=== PATIENT | male | born 1995 | race Caucasian/White ===

== ENCOUNTER 2018-01-18 20:58 | Emergency (ER) | payer OTHER, SELFPAY ==
--- NOTE | 2018-01-18 22:22 | EDPHYS ---
Physician Documentation [facility] Name: Pasha Garcia Age: 22 yrs Sex: Male : 1995 Arrival Date: 01/18/2018 Time: 21:00 Bed 30 Private MD: Felipe Zhao ED Physician William Mary HPI: 01/18 22:15 This 22 yrs old Male presents to ER via Ambulatory with complaints of Arm pm1 Pain, arm,finger,side,pain possible infection. 22:15 The patient or guardian complains of pain, a rash. The complaints affect the dorsal pm1 aspect of distal phalanx of left middle finger. Context: The problem was sustained at home, resulted from unknown cause. Onset: The symptoms/episode began/occurred yesterday. Treatment prior to arrival includes: no previous treatment. Modifying factors: The symptoms are alleviated by nothing. the symptoms are aggravated by movement. Associated signs and symptoms: Pertinent positives: pain, Pertinent negatives: deformity, erythema, fever, numbness, tingling. Severity of symptoms: in the emergency department the symptoms are actually worse. The patient has not experienced similar symptoms in the past. Historical: - Allergies: 21:16 No Known Allergies; aj1 - Home Meds: 21:16 None [Active]; aj1 - PMHx: 21:16 None; aj1 - PSHx: 21:16 None; aj1 - Immunization history:: Adult Immunizations up to date. - Social history:: Smoking status: Patient uses tobacco products, smokes one-half pack cigarettes per day. - Ebola Screening: : Patient denies travel to an Ebola-affected area in the 21 days before illness onset. ROS: 22:15 Constitutional: Negative for fever, chills, and weight loss, Eyes: Negative for injury, pm1 pain, redness, and discharge, ENT: Negative for injury, pain, and discharge, Neck: Negative for injury, pain, and swelling, Cardiovascular: Negative for chest pain, palpitations, and edema, Respiratory: Negative for shortness of breath, cough, wheezing, and pleuritic chest pain, Abdomen/GI: Negative for abdominal pain, nausea, vomiting, diarrhea, and constipation, Back: Negative for injury and pain, : Negative for injury, bleeding, discharge, and swelling. 22:15 MS/extremity: Positive for pain, of the dorsal aspect of distal phalanx of left middle finger, Epitrochlear lymph node swelling. 22:15 Skin: Positive for rash. Exam: 22:15 Constitutional: This is a well developed, well nourished patient who is awake, alert, pm1 and in no acute distress. Head/Face: Normocephalic, atraumatic. Chest/axilla: Normal chest wall appearance and motion. Nontender with no deformity. No lesions are appreciated. Cardiovascular: Regular rate and rhythm with a normal S1 and S2. No gallops, murmurs, or rubs. Normal PMI, no JVD. No pulse deficits. Respiratory: Lungs have equal breath sounds bilaterally, clear to auscultation and percussion. No rales, rhonchi or wheezes noted. No increased work of breathing, no retractions or nasal flaring. Abdomen/GI: Soft, non-tender, with normal bowel sounds. No distension or tympany. No guarding or rebound. No evidence of tenderness throughout. Back: No spinal tenderness. No costovertebral tenderness. Full range of motion. 22:15 Skin: Appearance: normal except for affected area, consistent with Herpetic chema. multiple small pustules present to dorsal aspect of left distal middle finger. 22:15 Neuro: Orientation: is normal, Motor: is normal, moves all fours. Vital Signs: 21:16 BP 136 / 97; Pulse 108; Resp 18; Temp 98.9(TE); Pulse Ox 97% on R/A; Weight 104.33 kg; aj1 Height 5 ft. 6 in. (167.64 cm); Pain 9/10; 21:16 Body Mass Index 37.12 (104.33 kg, 167.64 cm) aj1 MDM: 21:59 Patient medically screened. [facility] 22:15 Differential diagnosis: Herpetic chema, abscess, cellulitis. pm1 22:19 Data reviewed: vital signs. Data interpreted: Pulse oximetry: on room air is 97 %. pm1 Interpretation: normal. Counseling: I had a detailed discussion with the patient and/or guardian regarding: the historical points, exam findings, and any diagnostic results supporting the discharge/admit diagnosis, the need for outpatient follow up, to return to the emergency department if symptoms worsen or persist or if there are any questions or concerns that arise at home. Administered Medications: No medications were administered Disposition: 01/19 15:35 Co-signature as Attending Physician, William Mary MD I agree with the assessment and [facility] plan of care. Disposition: 01/18/18 22:21 Discharged to Home. Impression: Rash and other nonspecific skin eruption. - Condition is Stable. - Discharge Instructions: Rash. - Prescriptions for Bactroban 2 % Topical Ointment - Apply to affected area 1 application by TOPICAL route every 12 hours; 30 gram. Acyclovir 800 mg Oral Tablet - take 1 tablet by ORAL route 5 times per day for 10 days; 50 tablet. Bactrim DS 800- 160 mg Oral Tablet - take 1 tablet by ORAL route every 12 hours for 10 days; 20 tablet. Tylenol- Codeine #3 300-30 mg Oral Tablet - take 2 tablets by ORAL route every 6 hours As needed; 20 tablet. - Medication Reconciliation Form, Thank You Letter, Antibiotic Education, Prescription Opioid Use form. - Follow up: Emergency Department; When: As needed; Reason: Worsening of condition. Follow up: Private Physician; When: 2 - 3 days; Reason: Recheck today's complaints, Continuance of care, Re-evaluation by your physician. - Problem is new. - Symptoms have improved. Signatures: Ana Turner RN RN aj1 William Mary MD MD cha Marinas, Patrick, BIOLOGY ADJUNCT INSTRUCTOR BIOLOGY ADJUNCT INSTRUCTOR pm1 Vicente Choi RN RN mb3 Corrections: (The following items were deleted from the chart) 01/18 22:39 22:21 01/18/2018 22:21 Discharged to Home. Impression: Rash and other nonspecific skin mb3 eruption. Condition is Stable. Forms are Medication Reconciliation Form, Thank You Letter, Antibiotic Education, Prescription Opioid Use. Follow up: Emergency Department; When: As needed; Reason: Worsening of condition. Follow up: Private Physician; When: 2 - 3 days; Reason: Recheck today's complaints, Continuance of care, Re-evaluation by your physician. Problem is new. Symptoms have improved. pm1
--- NOTE | 2018-01-18 22:22 | ER ---
Nurse's Notes [facility] Name: Pasha Garcia Age: 22 yrs Sex: Male : 1995 Arrival Date: 01/18/2018 Time: 21:00 Bed 30 Private MD: Felipe Zhao Diagnosis: Rash and other nonspecific skin eruption Presentation: 01/18 21:13 Presenting complaint: Patient states: Woke up yesterday with a burning pain in his left aj1 index finger then I noticed this rash, and now its spread to my arm and then down my side. Transition of care: patient was not received from another setting of care. Onset of symptoms was January 17, 2018. Risk Assessment: Do you want to hurt yourself or someone else? Patient reports no desire to harm self or others. Initial Sepsis Screen: Does the patient meet any 2 criteria? No. Patient's initial sepsis screen is negative. Does the patient have a suspected source of infection? No. Patient's initial sepsis screen is negative. Care prior to arrival: None. 21:13 Method Of Arrival: Ambulatory aj1 21:13 Acuity: SAKINA 4 aj1 Triage Assessment: 21:16 General: Appears in no apparent distress. comfortable, Behavior is calm, cooperative, aj1 appropriate for age. Pain: Complains of pain in left lateral anterior chest, dorsal aspect of distal phalanx of left middle finger, dorsal aspect of middle phalanx of left middle finger and left arm Pain does not radiate. Pain currently is 9 out of 10 on a pain scale. Quality of pain is described as burning, Pain began 1 day ago. Is continuous, Aggravated by movement. EENT: No signs and/or symptoms were reported regarding the EENT system. Neuro: No deficits noted. Level of Consciousness is awake, alert, obeys commands, Oriented to person, place, time, situation, Speech is normal, Facial symmetry appears normal. Cardiovascular: Patient's skin is warm and dry. Respiratory: Airway is patent Respiratory effort is even, unlabored, Respiratory pattern is regular, symmetrical. GI: No signs and/or symptoms were reported involving the gastrointestinal system. : No signs and/or symptoms were reported regarding the genitourinary system. Derm: Rash noted that is red, raised, on left lateral anterior chest, dorsal aspect of distal phalanx of left middle finger, dorsal aspect of middle phalanx of left middle finger, left axilla and palmar aspect of left forearm. Musculoskeletal: Circulation, motion, and sensation intact. Historical: - Allergies: 21:16 No Known Allergies; aj1 - Home Meds: 21:16 None [Active]; aj1 - PMHx: 21:16 None; aj1 - PSHx: 21:16 None; aj1 - Immunization history:: Adult Immunizations up to date. - Social history:: Smoking status: Patient uses tobacco products, smokes one-half pack cigarettes per day. - Ebola Screening: : Patient denies travel to an Ebola-affected area in the 21 days before illness onset. Screenin:37 Abuse screen: Denies threats or abuse. Nutritional screening: No deficits noted. mb3 Tuberculosis screening: No symptoms or risk factors identified. Fall Risk None identified. Assessment: 22:33 General: Appears uncomfortable, well groomed, Behavior is calm, cooperative, mb3 appropriate for age. Pain: Complains of pain in left hand, posterior aspect of left shoulder, left tricep and left elbow Pain radiates to left scapular area. Neuro: No deficits noted. Cardiovascular: No deficits noted. Respiratory: No deficits noted. GI: No deficits noted. No signs and/or symptoms were reported involving the gastrointestinal system. Vital Signs: 21:16 BP 136 / 97; Pulse 108; Resp 18; Temp 98.9(TE); Pulse Ox 97% on R/A; Weight 104.33 kg; aj1 Height 5 ft. 6 in. (167.64 cm); Pain 9/10; 21:16 Body Mass Index 37.12 (104.33 kg, 167.64 cm) aj1 ED Course: 21:00 Patient arrived in ED. es 21:03 Felipe Zhao MD is Private Physician. es 21:06 Patient went outside to get something from his car per registration personnel. Will aj1 triage patient when he comes back into the ER. 21:16 Triage completed. aj1 21:16 Arm band placed on Patient placed in waiting room, Patient notified of wait time. aj1 21:31 Vicente Choi, NIYAH is Primary Nurse. mb3 21:51 Jose Luis Mayer NP is PHCP. pm1 21:51 William Mary MD is Attending Physician. pm1 22:38 No provider procedures requiring assistance completed. Patient did not have IV access mb3 during this emergency room visit. 22:39 Patient has correct armband on for positive identification. mb3 Administered Medications: No medications were administered Outcome: 22:21 Discharge ordered by . pm1 22:37 Discharged to home ambulatory. mb3 22:37 Condition: stable 22:37 Discharge instructions given to patient, Instructed on discharge instructions, follow up and referral plans. medication usage, Demonstrated understanding of instructions, follow-up care, medications, Prescriptions given X 4. 22:39 Patient left the ED. mb3 Signatures: Ana Turner, RN RN aj1 Keyla Leon Patrick, VP OF MARKETING VP OF MARKETING pm1 Vicente Choi RN RN mb3
[2018-01-18 23:29] VITALS: BP 136/97; TEMP 98.9; O2SAT 97
== END 2018-01-18 22:39 | disposition home or self-care (01) ==
LOC: ER 20:58
DX: R21 Rash and other nonspecific skin eruption (principal); F17.210 Nicotine dependence, cigarettes, uncomplicated
CPT/HCPCS: 99282

== ENCOUNTER 2019-05-22 08:20 | Emergency (ER) | payer SELFPAY ==
[2019-05-22] MEDS ORDERED: MORPHINE 4 MG/ML SYR ONE (08:44)
[2019-05-22] MEDS ORDERED: NA CHLORIDE 0.9% 1,000 ML ONE ×2 (08:44→12:01)
[2019-05-22] MEDS ORDERED: ONDANSETRON 4 MG/2 ML VIAL ONE ×2 (08:44→12:01)
[2019-05-22 08:56] LABS: Absolute Lymphocytes (CBC) 0.6 K/uL (0.7-4.9); RBC Red Blood Cell Count 5.78 M/uL (4.33-5.43)
[2019-05-22 09:01] LABS: Basophils % 0.2 % (0-1.3); Hematocrit 50.7 % (39.6-49.0); Lymphocytes % 2.7 % (15.3-44.8); MPV 7.9 fL (7.6-11.3)
[2019-05-22 09:17] LABS: Albumin 4.8 g/dL (3.4-5.0); Bilirubin Direct 0.1 mg/dL (0-0.2); Bilirubin Total 0.4 mg/dL (0.2-1.0); Protein, Total 9.2 g/dL (6.4-8.2)
[2019-05-22 09:26] LABS: Blood Morphology Comment NOT SEEN (NOT SEEN); Platelet Estimate ADEQ
--- NOTE | 2019-05-22 10:30 | RAD REPORT ---
EXAM DESCRIPTION: CT - Abdomen Pelvis W Contrast - 05/22/2019 10:06 am CLINICAL HISTORY: Abdominal pain COMPARISON: none. TECHNIQUE: Computed axial tomography of the abdomen pelvis was obtained. 100 cc Isovue-300 was admin istered intravenously. Oral contrast was not requested which limits evaluation of bowel. All CT scans are performed using dose optimization technique as appropriate and may include automated exposure control or mA/KV adjustment according to patient size. FINDINGS: Fatty liver Spleen, pancreas, adrenal and kidneys appear unremarkable. There is no evidence of diverticulitis. IMPRESSION: No acute abnormality is displayed.
--- NOTE | 2019-05-22 10:41 | RAD REPORT ---
EXAM DESCRIPTION: US - Abdomen Exam Limited - 05/22/2019 9:29 am CLINICAL HISTORY: Epigastric pain;Flank pain COMPARISON: No comparisons FINDINGS: No gallstones, sludge or other abnormalities within the gallbladder lumen. There is no wal l thickening or pericholecystic fluid. No common duct stone or biliary tree dilatation identified. IMPRESSION: Normal gallbladder and biliary tree ultrasound.
[2019-05-22] MEDS ORDERED: CIPROFLOXACIN HCL 500 MG TAB ONE (12:00)
[2019-05-22] MEDS ORDERED: METRONIDAZOLE 500mg IVPB 500 MG/100 ML BAG IV ONE (12:01)
--- NOTE | 2019-05-22 12:35 | EDPHYS ---
Physician Documentation [facility] Name: Pasha Garcia Age: 24 yrs Sex: Male : 1995 Arrival Date: 05/22/2019 Time: 08:23 Bed 18 Private MD: ED Physician Wally Vazquez HPI: 05/22 09:06 This 24 yrs old Male presents to ER via Ambulatory with complaints of pm1 Vomiting. 09:06 The patient presents to the emergency department with nausea, vomiting, diarrhea, pm1 abdominal pain, of the epigastric area and posterior aspect of right lateral abdomen. Onset: The symptoms/episode began/occurred this morning, at 01:00. Possible causes: bad food exposure, Taco Sary taco. The symptoms are aggravated by nothing. The symptoms are alleviated by nothing. Associated signs and symptoms: Pertinent positives: abdominal pain, diarrhea, nausea, vomiting, Pertinent negatives: constipation, dysuria, fever. Severity of symptoms: in the emergency department the symptoms are worse. The patient has not experienced similar symptoms in the past. It is unknown whether or not the patient has recently seen a physician. Historical: - Allergies: 08:34 No Known Allergies; bp - Home Meds: 08:34 None [Active]; bp - PMHx: 08:34 None; bp - Immunization history:: Adult Immunizations up to date. - Social history:: Smoking status: Patient uses tobacco products. - Ebola Screening: : No symptoms or risks identified at this time. ROS: 09:06 Constitutional: Negative for fever, chills, and weight loss, Eyes: Negative for injury, pm1 pain, redness, and discharge, ENT: Negative for injury, pain, and discharge, Neck: Negative for injury, pain, and swelling, Cardiovascular: Negative for chest pain, palpitations, and edema, Respiratory: Negative for shortness of breath, cough, wheezing, and pleuritic chest pain. 09:06 : Negative for injury, bleeding, discharge, and swelling, MS/Extremity: Negative for injury and deformity, Skin: Negative for injury, rash, and discoloration, Neuro: Negative for headache, weakness, numbness, tingling, and seizure. 09:06 Abdomen/GI: Positive for abdominal pain, nausea, vomiting, and diarrhea, Negative for constipation. 09:06 Back: Positive for flank pain, on the right. Exam: 09:06 Constitutional: This is a well developed, well nourished patient who is awake, alert, pm1 and in no acute distress. Head/Face: Normocephalic, atraumatic. Chest/axilla: Normal chest wall appearance and motion. Nontender with no deformity. No lesions are appreciated. Cardiovascular: Regular rate and rhythm with a normal S1 and S2. No gallops, murmurs, or rubs. Normal PMI, no JVD. No pulse deficits. Respiratory: Lungs have equal breath sounds bilaterally, clear to auscultation and percussion. No rales, rhonchi or wheezes noted. No increased work of breathing, no retractions or nasal flaring. 09:06 Back: No spinal tenderness. No costovertebral tenderness. Full range of motion. Skin: Warm, dry with normal turgor. Normal color with no rashes, no lesions, and no evidence of cellulitis. MS/ Extremity: Pulses equal, no cyanosis. Neurovascular intact. Full, normal range of motion. 09:06 Abdomen/GI: Inspection: abdomen appears normal, Bowel sounds: normal, Palpation: soft, moderate abdominal tenderness, in the epigastric area and posterior aspect of right lateral abdomen, mass, is not appreciated, rebound tenderness, is not appreciated. 09:06 Neuro: Orientation: is normal, Motor: is normal, moves all fours. Vital Signs: 08:35 BP 107 / 74; Pulse 94; Resp 20; Pulse Ox 100% ; Weight 108.86 kg; bp 09:44 BP 121 / 73; Pulse 91; Resp 16; Pulse Ox 99% ; bp 11:01 BP 108 / 64; Pulse 92; Resp 14; Pulse Ox 97% ; bp 12:10 BP 123 / 78; Pulse 96; Resp 16; Pulse Ox 97% ; bp MDM: 08:52 Patient medically screened. pm1 12:05 Data reviewed: vital signs. Data interpreted: Pulse oximetry: on room air is 97 %. pm1 Interpretation: normal. 12:33 Counseling: I had a detailed discussion with the patient and/or guardian regarding: the pm1 historical points, exam findings, and any diagnostic results supporting the discharge/admit diagnosis, lab results, radiology results, the need for outpatient follow up, to return to the emergency department if symptoms worsen or persist or if there are any questions or concerns that arise at home. 05/22 08:35 Order name: Basic Metabolic Panel; Complete Time: 10:39 bp 05/22 08:35 Order name: CBC with Diff; Complete Time: 09:36 bp 05/22 08:35 Order name: Creatinine for Radiology; Complete Time: 09:17 bp 05/22 08:35 Order name: Hepatic Function; Complete Time: 10:39 bp 05/22 08:35 Order name: Lipase; Complete Time: 10:39 bp 05/22 09:26 Order name: Manual Differential EDMS 05/22 08:53 Order name: CT Abd/Pelvis - IV Contrast Only; Complete Time: 12:05 pm1 05/22 09:10 Order name: US Abdomen Limited; Complete Time: 10:45 pm1 05/22 08:35 Order name: IV Saline Lock; Complete Time: 08:44 bp 05/22 08:35 Order name: Labs collected and sent; Complete Time: 08:44 bp 05/22 11:57 Order name: PO challenge; Complete Time: 12:09 pm1 Administered Medications: 08:50 Drug: morphine 4 mg Route: IVP; Site: right antecubital; bp 10:02 Follow up: Response: Pain is decreased bp 08:50 Drug: Zofran 4 mg Route: IVP; Site: right antecubital; bp 10:02 Follow up: Response: Nausea is decreased bp 08:50 Drug: NS 0.9% 1000 ml Route: IV; Rate: 1 bolus; Site: right antecubital; bp 10:03 Follow up: IV Status: Completed infusion; IV Intake: 1000ml bp 12:09 Drug: NS 0.9% 1000 ml Route: IV; Rate: 1000 ml; Site: right antecubital; bp 12:50 Follow up: IV Status: Completed infusion; IV Intake: 1000ml bp 12:09 Drug: Cipro 500 mg Route: PO; bp 12:51 Follow up: Response: No adverse reaction bp 12:09 Drug: Flagyl 500 mg Volume: 100 ml; Route: IVPB; Rate: 200 ml/hr; Infused Over: 30 bp mins; Site: right antecubital; 12:51 Follow up: IV Status: Completed infusion; IV Intake: 100ml bp Disposition: 16:29 Co-signature as Attending Physician, Wally Vazquez MD. rn Disposition: 05/22/19 12:34 Discharged to Home. Impression: Unspecified abdominal pain, Vomiting, Diarrhea, unspecified. - Condition is Stable. - Discharge Instructions: Abdominal Pain, Adult, Food Choices to Help Relieve Diarrhea, Adult, Diarrhea, Adult, Food Poisoning, Nausea and Vomiting, Adult. - Prescriptions for Flagyl 500 mg Oral Tablet - take 1 tablet by ORAL route every 8 hours for 10 days; 30 tablet. Cipro 500 mg Oral Tablet - take 1 tablet by ORAL route every 12 hours for 10 days; 20 tablet. Tylenol- Codeine #3 300-30 mg Oral Tablet - take 2 tablets by ORAL route every 6 hours As needed; 20 tablet. Zofran ODT 4 mg Oral tablet,disintegrating - take 1 tablet by ORAL route every 8 hours As needed; 20 tablet. - Medication Reconciliation Form, Thank You Letter, Antibiotic Education, Prescription Opioid Use form. - Follow up: Emergency Department; When: As needed; Reason: Worsening of condition. Follow up: Private Physician; When: 2 - 3 days; Reason: Recheck today's complaints, Continuance of care, Re-evaluation by your physician. - Problem is new. - Symptoms have improved. Signatures: Dispatcher [employer] EDMS Wally Vazquez MD MD rn Marinas, Patrick, DICK SENIOR TEST ENGINEER pm1 Deshawn Joiner RN RN bp Corrections: (The following items were deleted from the chart) 12:43 12:34 05/22/2019 12:34 Discharged to Home. Impression: Unspecified abdominal pain; pm1 Vomiting. Condition is Stable. Forms are Medication Reconciliation Form, Thank You Letter, Antibiotic Education, Prescription Opioid Use. Follow up: Emergency Department; When: As needed; Reason: Worsening of condition. Follow up: Private Physician; When: 2 - 3 days; Reason: Recheck today's complaints, Continuance of care, Re-evaluation by your physician. Problem is new. Symptoms have improved. pm1 12:51 12:43 05/22/2019 12:34 Discharged to Home. Impression: Unspecified abdominal pain; bp Vomiting; Diarrhea, unspecified. Condition is Stable. Discharge Instructions: Abdominal Pain, Adult, Food Poisoning, Nausea and Vomiting, Adult, Food Choices to Help Relieve Diarrhea, Adult, Diarrhea, Adult. Prescriptions for Flagyl 500 mg Oral Tablet - take 1 tablet by ORAL route every 8 hours for 10 days; 30 tablet, Zofran 4 mg Oral Tablet - take 1 tablet by ORAL route every 8 hours As needed; 20 tablet, Cipro 500 mg Oral Tablet - take 1 tablet by ORAL route every 12 hours for 10 days; 20 tablet, Tylenol-Codeine #3 300-30 mg Oral Tablet - take 2 tablets by ORAL route every 6 hours As needed; 20 tablet. and Forms are Medication Reconciliation Form, Thank You Letter, Antibiotic Education, Prescription Opioid Use. Follow up: Emergency Department; When: As needed; Reason: Worsening of condition. Follow up: Private Physician; When: 2 - 3 days; Reason: Recheck today's complaints, Continuance of care, Re-evaluation by your physician. Problem is new. Symptoms have improved. pm1
--- NOTE | 2019-05-22 12:35 | ER ---
Nurse's Notes [facility] Name: Pasha Garcia Age: 24 yrs Sex: Male : 1995 Arrival Date: 05/22/2019 Time: 08:23 Bed 18 Private MD: Diagnosis: Unspecified abdominal pain;Vomiting;Diarrhea, unspecified Presentation: 05/22 08:32 Presenting complaint: Patient states: ABDOMINAL CRAMPS WITH NAUSEA/VOMITING SINCE 0100. bp Transition of care: patient was not received from another setting of care. Onset of symptoms was May 22, 2019 at 01:00. Risk Assessment: Do you want to hurt yourself or someone else? Patient reports no desire to harm self or others. Initial Sepsis Screen:. Care prior to arrival: None. 08:32 Method Of Arrival: Ambulatory bp 08:32 Acuity: SAKINA 3 bp 08:33 Initial Sepsis Screen: Does the patient meet any 2 criteria? Systolic BP < 90 mmHg. HR bp > 90 bpm. Does the patient have a suspected source of infection? Yes: Acute abdominal pain. Triage Assessment: 08:35 General: Appears in no apparent distress. uncomfortable, ill, Behavior is cooperative, bp appropriate for age, anxious. Pain: Complains of pain in abdomen. EENT: No deficits noted. Neuro: No deficits noted. Cardiovascular: No deficits noted. Respiratory: No deficits noted. GI: Reports lower abdominal pain, upper abdominal pain, cramping, nausea, vomiting. : No signs and/or symptoms were reported regarding the genitourinary system. Derm: No deficits noted. Musculoskeletal: No deficits noted. Historical: - Allergies: 08:34 No Known Allergies; bp - Home Meds: 08:34 None [Active]; bp - PMHx: 08:34 None; bp - Immunization history:: Adult Immunizations up to date. - Social history:: Smoking status: Patient uses tobacco products. - Ebola Screening: : No symptoms or risks identified at this time. Screenin:37 Abuse screen: Denies threats or abuse. Denies injuries from another. Nutritional bp screening: No deficits noted. Tuberculosis screening: No symptoms or risk factors identified. Fall Risk None identified. Assessment: 08:37 General: SEE TRIAGE NOTE. GI: Abdomen is non-distended. bp 09:44 Reassessment: U/S COMPLETED, CT PENDING Patient states symptoms have improved. bp 10:02 Reassessment: PT TO CT. bp 11:00 Reassessment: PER RADIOLOGIST, CT UNREMARKABLE. PROVIDER RE-EVAL PENDING. bp 12:10 Reassessment: PO CHALLENGE COMPLETED, DISPO PENDING AFTER IVF AND ABX. bp 12:49 Reassessment: PT D/C HOME AMBULATORY, DX WITH ABDOMINAL PAIN, VOMITING AND DIARRHEA. bp Vital Signs: 08:35 BP 107 / 74; Pulse 94; Resp 20; Pulse Ox 100% ; Weight 108.86 kg; bp 09:44 BP 121 / 73; Pulse 91; Resp 16; Pulse Ox 99% ; bp 11:01 BP 108 / 64; Pulse 92; Resp 14; Pulse Ox 97% ; bp 12:10 BP 123 / 78; Pulse 96; Resp 16; Pulse Ox 97% ; bp ED Course: 08:23 Patient arrived in ED. mr 08:30 Deshawn Joiner, RN is Primary Nurse. bp 08:33 Triage completed. bp 08:35 Arm band placed on. bp 08:37 Patient has correct armband on for positive identification. Placed in gown. Bed in low bp position. Call light in reach. Side rails up X2. 08:40 Jose Luis Mayer NP is PHCP. pm1 08:40 Wally Vazquez MD is Attending Physician. pm1 08:43 Initial lab(s) drawn, by me, sent to lab. Inserted saline lock: 20 gauge in right lt1 antecubital area, using aseptic technique. 09:15 US Abdomen Limited In Process Unspecified. EDMS 10:06 CT Abd/Pelvis - IV Contrast Only In Process Unspecified. EDMS 12:49 No provider procedures requiring assistance completed. IV discontinued, intact, bp bleeding controlled, No redness/swelling at site. Pressure dressing applied. Administered Medications: 08:50 Drug: morphine 4 mg Route: IVP; Site: right antecubital; bp 10:02 Follow up: Response: Pain is decreased bp 08:50 Drug: Zofran 4 mg Route: IVP; Site: right antecubital; bp 10:02 Follow up: Response: Nausea is decreased bp 08:50 Drug: NS 0.9% 1000 ml Route: IV; Rate: 1 bolus; Site: right antecubital; bp 10:03 Follow up: IV Status: Completed infusion; IV Intake: 1000ml bp 12:09 Drug: NS 0.9% 1000 ml Route: IV; Rate: 1000 ml; Site: right antecubital; bp 12:50 Follow up: IV Status: Completed infusion; IV Intake: 1000ml bp 12:09 Drug: Cipro 500 mg Route: PO; bp 12:51 Follow up: Response: No adverse reaction bp 12:09 Drug: Flagyl 500 mg Volume: 100 ml; Route: IVPB; Rate: 200 ml/hr; Infused Over: 30 bp mins; Site: right antecubital; 12:51 Follow up: IV Status: Completed infusion; IV Intake: 100ml bp Intake: 10:03 IV: 1000ml; Total: 1000ml. bp 12:50 IV: 1000ml; Total: 2000ml. bp 12:51 IV: 100ml; Total: 2100ml. bp Outcome: 12:34 Discharge ordered by MD. pm1 12:50 Discharged to home ambulatory, with family. bp 12:50 Condition: stable 12:50 Discharge instructions given to patient, Instructed on discharge instructions, follow up and referral plans. medication usage, Demonstrated understanding of instructions, follow-up care, medications, Prescriptions given X 4. 12:51 Patient left the ED. bp Signatures: Dispatcher [employer] Pura Basurto LeylaJose Luis, CAMP ADVISOR CAMP ADVISOR pm1 Deshawn Joiner, NIYAH RN Asia Whiting lt1
[2019-05-22 13:01] VITALS: O2SAT 97
[2019-05-22 13:02] VITALS: BP 123/78
== END 2019-05-22 12:51 | disposition home or self-care (01) ==
LOC: ER 08:20
DX: R11.10 Vomiting, unspecified (principal); R19.7 Diarrhea, unspecified; Z72.0 Tobacco use
CPT/HCPCS: 36415; 74177; 76705; 80048; 80076; 83690; 85025; 96361; 96365; 96375; 99284; J2405; J7030; Q9967

== ENCOUNTER 2020-03-15 15:19 | Emergency (ER) | payer SELFPAY ==
[2020-03-15] MEDS ORDERED: HYDROCODONE/APAP 10/325 TAB ONE (16:14)
[2020-03-15] MEDS ORDERED: FENTANYL CITR 100 MCG/2 ML ONE (16:14)
--- NOTE | 2020-03-15 16:43 | RAD REPORT ---
EXAM DESCRIPTION: CT - CTFB CLINICAL HISTORY: left mandible;Facial pain COMPARISON: No comparisons TECHNIQUE: Axial 2 mm thick images of the face were obtained with sagittal and coronal reconstructio n images. All CT scans are performed using dose optimization technique as appropriate and may include automated exposure control or mA/KV adjustment according to patient size. FINDINGS: Generally poor dentition is noted.Multiple dental caries identified. A large periapical ab scess is seen measuring 15 x 10 mm left premolar. Significant soft tissue swelling is seen related to this along the left inferior mandibular soft tissues. The adjacent buccal soft tissues are quite thi ck measuring up to 2 cm in thickness. A small associated subperiosteal abscess along the buccal beverly x of the mandible is region measuring 11 x 4 mm is noted. Incidentally noted are large periapical abs cesses involving the right maxillary premolar and molar. The largest involving the first molar right maxillary tooth measuring 13 x 13 mm and extending into the right maxillary sinus with air is adjacen t mucosal thickening. 10 x 11 mm periapical abscess also noted right mandibular second premolar. The globes and orbital contents are grossly unremarkable.The remainder the paranasal sinuses and mast oids are clear. IMPRESSION: Significant periodontal abnormalities as detailed.Large left mandibular premolar periapi jennifer abscess is seen with adjacent soft tissue swelling and small adjacent subperiosteal abscess.
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
--- NOTE | 2020-03-15 16:54 | ER ---
Nurse's Notes [facility] Name: Pasha Garcia Age: 25 yrs Sex: Male : 1995 Arrival Date: 03/15/2020 Time: 15:21 Bed 14 Private MD: Diagnosis: Periapical abscess with sinus Presentation: 03/15 15:35 Chief complaint: Patient states: L lower molar pain and jaw swelling, denies fever, ph N/V. Coronavirus screen: Client denies travel out of the [place] in the last 14 days. At this time, the client does not indicate any symptoms associated with coronavirus-19. Ebola Screen: No symptoms or risks identified at this time. Initial Sepsis Screen: Does the patient meet any 2 criteria? No. Patient's initial sepsis screen is negative. Does the patient have a suspected source of infection? Yes: Other: dental. Risk Assessment: Do you want to hurt yourself or someone else? Patient reports no desire to harm self or others. Onset of symptoms was March 15, 2020. 15:35 Method Of Arrival: Ambulatory ph 15:35 Acuity: SAKINA 4 ph Triage Assessment: 15:52 General: Appears in no apparent distress. uncomfortable. General: Behavior is calm, ls4 cooperative. Pain: Complains of pain in lower right first molar (#30) and lower left second molar (#18) and lower left first molar (#19) and left mandible and left cheek and left jaw Pain currently is 10 out of 10 on a pain scale. Neuro: No deficits noted. Cardiovascular: No deficits noted. Respiratory: No deficits noted. Historical: - Allergies: 15:37 No Known Allergies; ph - Home Meds: 15:37 None [Active]; ph - PMHx: 15:37 None; ph - PSHx: 15:37 None; ph - Immunization history:: Adult Immunizations unknown. - Social history:: Smoking status: Patient reports the use of cigarette tobacco products, smokes one-half pack cigarettes per day. Screenin:37 Abuse screen: Denies threats or abuse. Denies injuries from another. Nutritional ph screening: No deficits noted. Tuberculosis screening: No symptoms or risk factors identified. Fall Risk None identified. Assessment: 15:53 General: see triage assessment . ls4 Vital Signs: 15:35 BP 138 / 101; Pulse 91; Resp 18; Temp 98.1(O); Pulse Ox 98% on R/A; Weight 99.79 kg; ph Height 5 ft. 7 in. (170.18 cm); 16:53 BP 145 / 106; Pulse 88; Resp 16; Pulse Ox 99% on R/A; Pain 7/10; ls4 15:35 Body Mass Index 34.46 (99.79 kg, 170.18 cm) ph ED Course: 15:21 Patient arrived in ED. ds1 15:29 Gaviota Hernandez [facility]-C [facility]. snw 15:29 William Mary MD is Attending Physician. snw 15:35 Luz Lugo, RN is Primary Nurse. ls4 15:37 Triage completed. ph 15:38 Arm band placed on Patient placed in an exam room. ph 15:38 Patient has correct armband on for positive identification. Bed in low position. Call ph light in reach. Pulse ox on. NIBP on. Door closed. Noise minimized. Warm blanket given. 16:08 No provider procedures requiring assistance completed. Patient did not have IV access ls4 during this emergency room visit. 16:17 CT Facial Bones W/O Con In Process Unspecified. EDMS Administered Medications: 16:07 Drug: Clindamycin 300 mg Route: PO; ls4 16:41 Follow up: Response: No adverse reaction ls4 16:08 Drug: [place] 10 mg-325 mg 1 tabs Route: PO; ls4 16:41 Follow up: Response: No adverse reaction; Marked relief of symptoms ls4 16:08 Drug: fentaNYL (PF) 25 mcg Route: IM; Site: right deltoid; ls4 16:41 Follow up: Response: No adverse reaction; Marked relief of symptoms ls4 17:32 Not Given (Patient Refused): Clindamycin 600 mg IM once ls4 17:32 Not Given (Patient Refused): Tetanus-Diphtheria Toxoid Adult 0.5 ml IM once ls4 Outcome: 16:54 Discharge ordered by . snw 17:36 Patient left the ED. ls4 Signatures: Dispatcher [employer] EDMS Gaviota Hernandez FNP-C [facility] ds1 Joya Maldonado RN RN ph Luz Lugo RN RN ls4
[2020-03-15 17:56] VITALS: TEMP 98.1
[2020-03-15 17:57] VITALS: BP 145/106; O2SAT 99
== END 2020-03-15 17:36 | disposition home or self-care (01) ==
LOC: ER 15:19
DX: K04.6 Periapical abscess with sinus (principal); F17.210 Nicotine dependence, cigarettes, uncomplicated
CPT/HCPCS: 70486; 76377; 96372; 99283; J3010

== ENCOUNTER 2020-04-02 19:38 | Emergency (ER) | payer SELFPAY ==
[2020-04-02] MEDS ORDERED: KETOROLAC 30 MG/ML INJ ONE (21:57)
--- NOTE | 2020-04-02 23:15 | RAD REPORT ---
EXAM DESCRIPTION: RAD - Ankle Right 3 View - 04/02/2020 10:04 pm CLINICAL HISTORY: ankle Pain and swelling to the right ankle COMPARISON: No comparisons FINDINGS: Mild soft tissue swelling is seen about the ankle. Small calcaneal spurs. No acute fractur e is identified.
--- NOTE | 2020-04-02 23:18 | ER ---
Nurse's Notes [facility] Name: Pasha Garcia Age: 25 yrs Sex: Male : 1995 Arrival Date: 04/02/2020 Time: 19:39 Bed 7 Private MD: Diagnosis: Sprain of ankle Presentation: 04/02 20:01 Chief complaint: Patient states[place] Right ankle pain and ll1 swelling since. States he hasn't walked on it yet. Coronavirus screen: Client denies travel out of the [place] in the last 14 days. At this time, the client does not indicate any symptoms associated with coronavirus-19. Ebola Screen: Patient denies travel to an Ebola-affected area in the 21 days before illness onset. Initial Sepsis Screen: Does the patient meet any 2 criteria? No. Patient's initial sepsis screen is negative. Risk Assessment: Do you want to hurt yourself or someone else? Patient reports no desire to harm self or others. Onset of symptoms was April 01, 2020. 20:01 Method Of Arrival: Ambulatory 1 20:01 Acuity: SAKINA 3 ll1 21:30 Initial Sepsis Screen: Does the patient have a suspected source of infection? No. wh Patient's initial sepsis screen is negative. Triage Assessment: 21:30 Injury Description: Swelling in right ankle. Historical: - Allergies: 20:03 No Known Allergies; ll1 - PSHx: 20:03 None; ll1 - Immunization history:: Flu vaccine is not up to date. - Social history:: Smoking status: Patient reports the use of cigarette tobacco products, smokes one-half pack cigarettes per day, Patient/guardian denies using alcohol, street drugs. Screenin:30 Abuse screen: Denies threats or abuse. Denies injuries from another. Nutritional screening: No deficits noted. Tuberculosis screening: No symptoms or risk factors identified. Fall Risk None identified. Assessment: 21:30 General: Appears in no apparent distress. Behavior is calm, cooperative, appropriate for age. Pain: Complains of pain in anterior aspect of right ankle Pain does not radiate. Pain currently is 7 out of 10 on a pain scale. Quality of pain is described as aching. Neuro: Level of Consciousness is awake, alert, obeys commands, Oriented to person, place, time, situation, Appropriate for age. Cardiovascular: Capillary refill < 3 seconds. Respiratory: Airway is patent Respiratory effort is even, unlabored, Respiratory pattern is regular, symmetrical. GI: Abdomen is flat, non-distended. : No signs and/or symptoms were reported regarding the genitourinary system. EENT: No signs and/or symptoms were reported regarding the EENT system. Derm: Skin is intact, is healthy with good turgor, Skin is pink, warm \T\ dry. normal. Musculoskeletal: Circulation, motion, and sensation intact. Swelling present in anterior aspect of right ankle. 23:00 Reassessment: Patient appears in no apparent distress at this time. No changes from previously documented assessment. Patient and/or family updated on plan of care and expected duration. Pain level reassessed. Patient is alert, oriented x 3, equal unlabored respirations, skin warm/dry/pink. Vital Signs: 20:01 BP 95 / 66; Pulse 89; Resp 17; Temp 98.5; Pulse Ox 100% ; Weight 99.79 kg; Height 5 ft. ll1 7 in. (170.18 cm); Pain 9/10; 21:30 BP 118 / 74; Pulse 60; Resp 18; Pulse Ox 100% ; wh 23:00 BP 126 / 79; Pulse 69; Resp 18; Pulse Ox 87% on R/A; wh 20:01 Body Mass Index 34.46 (99.79 kg, 170.18 cm) ll1 ED Course: 19:39 Patient arrived in ED. cl3 20:03 Triage completed. ll1 20:03 Arm band placed on. ll1 21:03 Eric Ramírez PA is PHCP. [facility] 21:03 William Mary MD is Attending Physician. jmm 21:13 Clare Keith, NIYAH is Primary Nurse. mt2 21:30 Patient has correct armband on for positive identification. Bed in low position. Call light in reach. Side rails up X 1. Pulse ox on. NIBP on. 22:04 Ankle Right 3 View XRAY In Process Unspecified. EDMS 23:06 No provider procedures requiring assistance completed. Patient did not have IV access during this emergency room visit. 23:28 Ortho shoe applied to right foot. oe Administered Medications: 21:51 Drug: Ketorolac 30 mg Route: IM; Site: right gluteus; 23:03 Follow up: Response: No adverse reaction; Pain is decreased Outcome: 23:18 Discharge ordered by . gina 23:33 Discharged to home ambulatory. 23:33 Condition: stable 23:33 Discharge instructions given to patient, Instructed on discharge instructions, follow up and referral plans. medication usage, POC Demonstrated understanding of instructions, follow-up care, medications, POC Prescriptions given X 1. 23:34 Patient left the ED. Signatures: Dispatcher [employer] EDMS Eric Ramírez PA PA jmm [place]spin[place], [place] oe [place], Winsy Rhett Hooks cl3 Emmy Hooks RN RN ll1 Clare Keith RN RN mt2
--- NOTE | 2020-04-02 23:18 | EDPHYS ---
Physician Documentation [facility] Name: Pasha Garcia Age: 25 yrs Sex: Male : 1995 Arrival Date: 04/02/2020 Time: 19:39 Bed 7 Private MD: ED Physician William Mary HPI: 04/02 21:43 This 25 yrs old Male presents to ER via Ambulatory with complaints of Foot jmm Injury. 21:43 The patient presents with pain. Onset: The symptoms/episode began/occurred acutely, 1 jmm day(s) ago. 21:44 The complaints affect the anterior aspect of right ankle. Modifying factors: The jmm symptoms are alleviated by nothing. the symptoms are aggravated by nothing. Associated signs and symptoms: The patient has no apparent associated signs or symptoms, Pertinent positives: swelling, tingling. This is a 25 year old male with no chronic medical conditions that presents to the ED with complaints of right ankle pain after falling from trailer yesterday. Denies head injury, loc. Denies back pain. . Historical: - Allergies: 20:03 No Known Allergies; ll1 - PSHx: 20:03 None; ll1 - Immunization history:: Flu vaccine is not up to date. - Social history:: Smoking status: Patient reports the use of cigarette tobacco products, smokes one-half pack cigarettes per day, Patient/guardian denies using alcohol, street drugs. ROS: 21:44 Constitutional: Negative for fever, chills, and weight loss, Cardiovascular: Negative jmm for chest pain, palpitations, and edema, Respiratory: Negative for shortness of breath, cough, wheezing, and pleuritic chest pain. 21:44 MS/extremity: Positive for injury or acute deformity, pain, swelling. 21:44 All other systems are negative. Exam: 21:44 Constitutional: This is a well developed, well nourished patient who is awake, alert, jmm and in no acute distress. Head/Face: atraumatic. Eyes: EOMI, no conjunctival erythema appreciated ENT: Moist Mucus Membranes Neck: Trachea midline, Supple Chest/axilla: Normal chest wall appearance and motion. Cardiovascular: Regular rate and rhythm. No edema appreciated Respiratory: Normal respirations, no respiratory distress appreciated Abdomen/GI: Non distended, soft Back: Normal ROM Skin: General appearance color normal 21:44 Musculoskeletal/extremity: swelling noted to the right ankle anteriorly, full dorsalis pulse, compartments are soft, NVI. 21:44 Skin: Appearance: Color: normal in color. 21:44 Neuro: Orientation: is normal, Mentation: is normal, Memory: is normal. 21:44 Psych: Behavior/mood is pleasant, cooperative. 23:15 Back: no midline tenderness, full [facility]. [facility] Vital Signs: 20:01 BP 95 / 66; Pulse 89; Resp 17; Temp 98.5; Pulse Ox 100% ; Weight 99.79 kg; Height 5 ft. ll1 7 in. (170.18 cm); Pain 9/10; 21:30 BP 118 / 74; Pulse 60; Resp 18; Pulse Ox 100% ; wh 23:00 BP 126 / 79; Pulse 69; Resp 18; Pulse Ox 87% on R/A; wh 20:01 Body Mass Index 34.46 (99.79 kg, 170.18 cm) ll1 MDM: 21:06 [facility] 23:15 Data reviewed: vital signs, nurses notes. Counseling: I had a detailed discussion with [facility] the patient and/or guardian regarding: the historical points, exam findings, and any diagnostic results supporting the discharge/admit diagnosis, radiology results, the need for outpatient follow up, to return to the emergency department if symptoms worsen or persist or if there are any questions or concerns that arise at home. 23:15 Data reviewed: radiologic studies, plain films. ED course: Patient advised to follow up [facility] with ortho for further evaluation. Patient understood and agrees with the plan of care. . 04/02 21:41 Order name: Ankle Right 3 View XRAY; Complete Time: 23:18 [facility] 04/02 22:40 Order name: Misc. Order: ortho boot; Complete Time: 23:05 [facility] Administered Medications: 21:51 Drug: Ketorolac 30 mg Route: IM; Site: right gluteus; 23:03 Follow up: Response: No adverse reaction; Pain is decreased Disposition: 04/03 17:02 Co-signature as Attending Physician, William Mary MD I agree with the assessment and [facility] plan of care. Disposition: 04/02/20 23:18 Discharged to Home. Impression: Sprain of ankle. - Condition is Stable. - Discharge Instructions: Ankle Sprain. - Prescriptions for Ibuprofen 800 mg Oral Tablet - take 1 tablet by ORAL route every 8 hours As needed take with food; 30 tablet. - Medication Reconciliation Form, Thank You Letter, Antibiotic Education, Prescription Opioid Use form. - Follow up: Private Physician; When: 2 - 3 days; Reason: Recheck today's complaints, Continuance of care, Re-evaluation by your physician. Signatures: Dispatcher [employer] EDMS William Mary MD MD cha Mickail, Joel, PA PA jmm Habalo, Winsy wh Lewis, Lynsay, RN RN ll1 Corrections: (The following items were deleted from the chart) 04/02 23:34 23:18 04/02/2020 23:18 Discharged to Home. Impression: Sprain of ankle. Condition is wh Stable. Forms are Medication Reconciliation Form, Thank You Letter, Antibiotic Education, Prescription Opioid Use. Follow up: Private Physician; When: 2 - 3 days; Reason: Recheck today's complaints, Continuance of care, Re-evaluation by your physician. gina
[2020-04-03] MEDS ORDERED: NA CHLORIDE 0.9% 1,000 ML ONE (01:41)
[2020-04-03] MEDS ORDERED: ONDANSETRON 4 MG/2 ML VIAL ONE (01:41)
[2020-04-05 01:59] VITALS: TEMP 98.5
[2020-04-05 02:01] VITALS: BP 126/79; O2SAT 87
== END 2020-04-02 23:34 | disposition home or self-care (01) ==
LOC: ER 19:38
DX: S93.401A Sprain of unspecified ligament of right ankle, initial encounter (principal); W17.89XA Other fall from one level to another, initial encounter; Y93.9 Activity, unspecified; Y92.9 Unspecified place or not applicable; F17.210 Nicotine dependence, cigarettes, uncomplicated
CPT/HCPCS: 96372; 99284

== ENCOUNTER 2023-02-06 13:50 | Emergency (ER) | payer SELFPAY ==
[2023-02-06] MEDS ORDERED: LIDOCAINE 1% MPF 30 ML VIAL ONE (14:00)
[2023-02-06] MEDS ORDERED: MORPHINE 4 MG/ML SYR ONE ×2 (14:02→15:09)
[2023-02-06] MEDS ORDERED: ONDANSETRON 4 MG/2 ML VIAL ONE (14:03)
[2023-02-06] MEDS ORDERED: NA CHLORIDE 0.9% 1,000 ML ONE (14:03)
[2023-02-06] MEDS ORDERED: CEFAZOLIN SODIUM 1 GM/VIAL ONE (14:07)
[2023-02-06] MEDS ORDERED: TDAP (DIPHTH,PERTUSS(ACELL),TET VAC) 0.5 ML VIAL IMVAC ONE (14:08)
--- NOTE | 2023-02-06 14:28 | EDPHYS ---
Physician Documentation [facility] Name: Pasha Garcia Age: 27 yrs Sex: Male : 1995 Arrival Date: 02/06/2023 Time: 13:50 Bed 3 Private MD: ED Physician William Mary HPI: 02/06 14:17 This 27 yrs old Male presents to ER via Ambulatory with complaints of cut tomas hand , mower, 2nd 3rd missing. 14:17 The patient or guardian reports decreased range of motion, deformity, injury, pain. The tomas complaints affect the DIP of right index finger and DIP of right middle finger. Context: The problem was sustained outdoors. Onset: The symptoms/episode began/occurred just prior to arrival. Modifying factors: The symptoms are alleviated by nothing, the symptoms are aggravated by movement, dependent position. Associated signs and symptoms: The patient has no apparent associated signs or symptoms. Severity of symptoms: At their worst the symptoms were moderate, in the emergency department the symptoms are unchanged. The patient has not experienced similar symptoms in the past. Historical: - Allergies: 14:02 No Known Allergies; hb - Immunization history: Last tetanus immunization: unknown. - Social history:: Smoking status: Patient denies any tobacco usage or history of. ROS: 14:19 Constitutional: Negative for fever, chills, and weight loss, Eyes: Negative for injury, tomas pain, redness, and discharge, ENT: Negative for injury, pain, and discharge, Neck: Negative for injury, pain, and swelling, Cardiovascular: Negative for chest pain, palpitations, and edema, Respiratory: Negative for shortness of breath, cough, wheezing, and pleuritic chest pain, Abdomen/GI: Negative for abdominal pain, nausea, vomiting, diarrhea, and constipation, Back: Negative for injury and pain, : Negative for injury, bleeding, discharge, and swelling, Skin: Negative for injury, rash, and discoloration, Neuro: Negative for headache, weakness, numbness, tingling, and seizure, Psych: Negative for depression, anxiety, suicide ideation, homicidal ideation, and hallucinations, Allergy/Immunology: Negative for hives, rash, and allergies, Endocrine: Negative for neck swelling, polydipsia, polyuria, polyphagia, and marked weight changes, Hematologic/Lymphatic: Negative for swollen nodes, abnormal bleeding, and unusual bruising. 14:19 MS/extremity: Positive for injury or acute deformity, pain, of the dorsal aspect of distal phalanx of right index finger, palmar aspect of distal phalanx of right middle finger, palmar aspect of distal phalanx of right index finger and right middle fingernail. Exam: 14:19 Constitutional: This is a well developed, well nourished patient who is awake, alert, tomas and in no acute distress. Head/Face: Normocephalic, atraumatic. Eyes: Pupils equal round and reactive to light, extra-ocular motions intact. Lids and lashes normal. Conjunctiva and sclera are non-icteric and not injected. Cornea within normal limits. Periorbital areas with no swelling, redness, or edema. ENT: Nares patent. No nasal discharge, no septal abnormalities noted. Tympanic membranes are normal and external auditory canals are clear. Oropharynx with no redness, swelling, or masses, exudates, or evidence of obstruction, uvula midline. Mucous membranes moist. Neck: Trachea midline, no thyromegaly or masses palpated, and no cervical lymphadenopathy. Supple, full range of motion without nuchal rigidity, or vertebral point tenderness. No Meningismus. Chest/axilla: Normal chest wall appearance and motion. Nontender with no deformity. No lesions are appreciated. Cardiovascular: Regular rate and rhythm with a normal S1 and S2. No gallops, murmurs, or rubs. Normal PMI, no JVD. No pulse deficits. Respiratory: Lungs have equal breath sounds bilaterally, clear to auscultation and percussion. No rales, rhonchi or wheezes noted. No increased work of breathing, no retractions or nasal flaring. Abdomen/GI: Soft, non-tender, with normal bowel sounds. No distension or tympany. No guarding or rebound. No evidence of tenderness throughout. Back: No spinal tenderness. No costovertebral tenderness. Full range of motion. Male : Normal genitalia with no discharge or lesions. Skin: Warm, dry with normal turgor. Normal color with no rashes, no lesions, and no evidence of cellulitis. Neuro: Awake and alert, GCS 15, oriented to person, place, time, and situation. Cranial nerves II-XII grossly intact. Motor strength 5/5 in all extremities. Sensory grossly intact. Cerebellar exam normal. Normal gait. Psych: Awake, alert, with orientation to person, place and time. Behavior, mood, and affect are within normal limits. 14:19 Musculoskeletal/extremity: ROM: limited active range of motion due to pain, limited passive range of motion due to pain, Circulation is intact in all extremities. Sensation intact. Compartment Syndrome exam of affected extremity: is normal. severe pain. Vital Signs: 14:01 BP 116 / 79; Pulse 100; Resp 20; Pulse Ox 100% on R/A; Pain 10/10; hb 14:05 BP 145 / 85; Pulse 110; Resp 24; Temp 98; Pulse Ox 99% ; hb 14:30 BP 142 / 90; Pulse 98; Resp 18; Pulse Ox 99% on R/A; eh3 15:02 BP 142 / 90; Pulse 98; Resp 16; Pulse Ox 98% ; bp 14:01 Pain Scale: Adult hb Patricia Coma Score: 14:05 Eye Response: spontaneous(4). Motor Response: obeys commands(6). Verbal Response: hb oriented(5). Total: 15. Trauma Score (Adult): 14:05 Eye Response: spontaneous(1); Verbal Response: oriented(1); Motor Response: obeys hb commands(2); Systolic BP: > 89 mm Hg(4); Respiratory Rate: 10 to 29 per min(4); Patricia Score: 15; Trauma Score: 12 15:02 Eye Response: spontaneous(1); Verbal Response: oriented(1); Motor Response: obeys hb commands(2); Systolic BP: > 89 mm Hg(4); Respiratory Rate: 10 to 29 per min(4); [place] Score: 15; Trauma Score: 12 Procedures: 14:19 Nerve block: (dental) of dorsal aspect of proximal phalanx of right index finger, tomas dorsal aspect of proximal phalanx of right middle finger, palmar aspect of proximal phalanx of right middle finger and palmar aspect of proxima; phalanx of right index finger Medication: Lidocaine 1% without epinephrine Marcaine 0.5%, Amount: 8 mls were injected, Effect: the patient's symptoms are improved, markedly, Set up for procedure. Performed by William Mary MD Patient tolerated well. MDM: 13:52 Patient medically screened. sb4 02/06 14:13 Order name: CBC with Diff tomas 02/06 14:13 Order name: Comprehensive Metabolic Panel [facility] 02/06 14:13 Order name: PT-INR [facility] 02/06 13:54 Order name: Hand Right 3 View XRAY sb4 02/06 13:56 Order name: NPO; Complete Time: 13:57 sb4 02/06 13:56 Order name: Saline Lock; Complete Time: 13:57 sb4 Administered Medications: 13:57 CANCELLED (Duplicate Order): morphine IM 4 mg IM once hb 13:58 CANCELLED (Duplicate Order): Zofran IM 4 mg IM once hb 13:58 Drug: morphine IVP or IV 4 mg Route: IVP; Infused Over: 4 mins; Site: left antecubital; hb 14:58 Follow up: Response: No adverse reaction bp 13:58 Drug: Ondansetron IVP 4 mg Route: IVP; Site: left antecubital; hb 14:58 Follow up: Response: No adverse reaction bp 14:04 Drug: ceFAZolin IVPB 2 grams Route: IVPB; Infused Over: 30 mins; Site: left antecubital;hb 14:59 Follow up: IV Status: Completed infusion; IV Intake: 100ml bp 14:04 Drug: Boostrix Tdap IM 0.5 ml Route: IM; Site: left deltoid; hb 14:59 Follow up: Response: No adverse reaction bp 14:59 Drug: morphine IVP or IV 4 mg Route: IVP; Infused Over: 4 mins; Site: left antecubital; bp 15:02 Follow up: Response: No adverse reaction bp Disposition Summary: 02/06/23 14:27 Transfer Ordered Transfer Location: [facility] tomas Reason: Higher level of care tomas Condition: Stable tomas Problem: new tomas Symptoms: have improved tomas Accepting Physician: to DR SAHIL MOORE(02/06/23 15:04) bp Diagnosis - 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 sb4 hb : 13:57 morphine IM 4 mg IM once ordered. hb hb 13:58 13:52 Zofran IM 4 mg IM once ordered. sb4 hb 13:58 13:57 Zofran IM 4 mg IM once ordered. hb hb 15:04 14:[address] SAHIL MOORE tomas bp
--- NOTE | 2023-02-06 14:28 | ER ---
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 Care hb prior to arrival: None. Mechanism of Injury: Amputation. Trauma event details: Injury occurred in the [facility], Injury occurred: at home. 13:48 Acuity: SAIKNA 2 hb 13:48 Method Of Arrival: Ambulatory hb 14:01 Coronavirus screen: At this time, the client does not indicate any symptoms associated hb with coronavirus-19. Ebola Screen: No symptoms or risks identified at this time. Initial Sepsis Screen: Does the patient meet any 2 criteria? No. Patient's initial sepsis screen is negative. Does the patient have a suspected source of infection? No. Patient's initial sepsis screen is negative. Risk Assessment: Do you want to hurt yourself or someone else? Patient reports no desire to harm self or others. Onset of symptoms was February 06, 2023. Trauma Activation: Alert Physician: ED Physician; Name: Dr. Mary; Notified At: 13:48; Arrived At: 13:48 Physician: General Surgeon; Name: ; Notified At: 13:48; Arrived At: Physician: Radiology; Name: ; Notified At: 13:48; Arrived At: Physician: Respiratory; Name: ; Notified At: 13:48; Arrived At: Physician: Lab; Name: ; Notified At: 13:48; Arrived At: Historical: - Allergies: 14:02 No Known Allergies; hb - Immunization history: Last tetanus immunization: unknown. - Social history:: Smoking status: Patient denies any tobacco usage or history of. Screenin:05 Abuse screen: Denies threats or abuse. Denies injuries from another. Tuberculosis hb screening: No symptoms or risk factors identified. 15:02 [facility] ED Fall Risk Assessment (Adult) History of falling in the last 3 months, bp including since admission No falls in past 3 months (0 pts). Nutritional screening: No deficits noted. Primary Survey: 14:05 NO uncontrolled hemorrhage observed. A: The client is awake and alert. The airway is hb patent. Breathing/Chest: Spontaneous respiratory effort, equal unlabored respirations, breath sounds clear bilaterally, regular pattern, symmetrical chest rise and fall. Circulation: No external hemorrhage present. Regular and strong central pulse, skin warm/dry/normal color. Disability Client is alert. Exposure/Environment: All clothing and personal items were removed. Forensic evidence collection is not deemed to be indicated at this time. Items placed in patient belonging bag. There is no evidence of uncontrolled external bleeding. Obvious injury(ies) are noted at this time: AMPUTATION OF DISTAL R 2ND AND 3RD FINGERS. 15:04 Reassessment Breathing: Spontaneous respiratory effort, equal unlabored respirations, bp breath sounds clear bilaterally, regular pattern with symmetrical chest rise and fall. Secondary Survey: 14:15 HEENT: No deficits noted. Gastrointestinal: No deficits noted. : No deficits noted. hb Musculoskeletal: No deficits noted. Injury Description: Amputation sustained to DIP of right middle finger and DIP of right index finger. Assessment: 14:05 General: Appears distressed, uncomfortable, Behavior is cooperative, appropriate for hb age, agitated, anxious. Pain: Complains of pain in right hand. Neuro: No deficits noted. EENT: No deficits noted. Cardiovascular: No deficits noted. Respiratory: No deficits noted. GI: No signs and/or symptoms were reported involving the gastrointestinal system. : No signs and/or symptoms were reported regarding the genitourinary system. Derm: No deficits noted. Musculoskeletal: No deficits noted. Injury Description: Amputation sustained to dorsal aspect of distal phalanx of right index finger and dorsal aspect of distal phalanx of right middle finger. 15:02 Reassessment: PT JACKIE WITH [facility]. bp Vital Signs: 14:01 BP 116 / 79; Pulse 100; Resp 20; Pulse Ox 100% on R/A; Pain 10/10; hb 14:05 BP 145 / 85; Pulse 110; Resp 24; Temp 98; Pulse Ox 99% ; hb 14:30 BP 142 / 90; Pulse 98; Resp 18; Pulse Ox 99% on R/A; eh3 15:02 BP 142 / 90; Pulse 98; Resp 16; Pulse Ox 98% ; bp 14:01 Pain Scale: Adult hb [place] Coma Score: 14:05 Eye Response: spontaneous(4). Motor Response: obeys commands(6). Verbal Response: hb oriented(5). Total: 15. Trauma Score (Adult): 14:05 Eye Response: spontaneous(1); Verbal Response: oriented(1); Motor Response: obeys hb commands(2); Systolic BP: > 89 mm Hg(4); Respiratory Rate: 10 to 29 per min(4); Magnet Score: 15; Trauma Score: 12 15:02 Eye Response: spontaneous(1); Verbal Response: oriented(1); Motor Response: obeys hb commands(2); Systolic BP: > 89 mm Hg(4); Respiratory Rate: 10 to 29 per min(4); Patricia Score: 15; Trauma Score: 12 ED Course: 13:52 Patient arrived in ED. eb 13:52 Leslie Armstrong PA-C is PHCP. sb4 13:52 William Mary MD is Attending Physician. sb4 13:52 Mary Plata, NIYAH is Primary Nurse. hb 14:00 Triage completed. hb 14:05 Patient has correct armband on for positive identification. Bed in low position. Call hb light in reach. Side rails up X2. 14:06 Inserted saline lock: 20 gauge in left antecubital area, using aseptic technique. zm 14:[address] Mary with Vania Valencia from the [facility] Transfer [place]. 14:[address] Little the trauma hand doctor x ray electronics wiring technician for [facility] with Dr. blanche Mary for patient transfer consultation. 14:14 [address] approval given to Dr. Mary for Vania Valencia Rn/ patient has been eb accepted to [facility] ER/ Dr. Little has accepted the patient in transfer/ report to be called to [phone]. 14:18 Hand Right 3 View XRAY In Process Unspecified. EDMS 15:02 No provider procedures requiring assistance completed. Patient transferred, IV remains bp in place. 15:04 Patient maintains SpO2 saturation greater than 95% on room air. Thermoregulation: warm bp blanket given to patient. 15:04 Arm band placed on. bp Administered Medications: 13:57 CANCELLED (Duplicate Order): morphine IM 4 mg IM once hb 13:58 CANCELLED (Duplicate Order): Zofran IM 4 mg IM once hb 13:58 Drug: morphine IVP or IV 4 mg Route: IVP; Infused Over: 4 mins; Site: left antecubital; hb 14:58 Follow up: Response: No adverse reaction bp 13:58 Drug: Ondansetron IVP 4 mg Route: IVP; Site: left antecubital; hb 14:58 Follow up: Response: No adverse reaction bp 14:04 Drug: ceFAZolin IVPB 2 grams Route: IVPB; Infused Over: 30 mins; Site: left antecubital;hb 14:59 Follow up: IV Status: Completed infusion; IV Intake: 100ml bp 14:04 Drug: Boostrix Tdap IM 0.5 ml Route: IM; Site: left deltoid; hb 14:59 Follow up: Response: No adverse reaction bp 14:59 Drug: morphine IVP or IV 4 mg Route: IVP; Infused Over: 4 mins; Site: left antecubital; bp 15:02 Follow up: Response: No adverse reaction bp Medication: 15:02 VIS not applicable for this client. bp Intake: 14:05 PO: 0ml; Total: 0ml. hb 14:59 IV: 100ml; Total: 100ml. bp Output: 14:05 Urine: 0ml; Total: 0ml. hb Outcome: 14:27 ER care complete, transfer ordered by MD. marin 15:02 Transferred by ground EMS to [facility]. bp 15:02 Condition: stable 15:02 Instructed on the need for transfer. 15:04 Patient's length of stay was not longer than 2 hours. bp 15:04 Patient left the ED. bp Signatures: Dispatcher [employer] EDMS William Mary MD MD cha Baxter, Heather, RN RN Deshawn Dangelo RN RN bp Botello, Elizabeth eb Hall, Erin, RN RN eh3 Ama Burnham Sophia, PA-C PA-C sb4 Corrections: (The following items were deleted from the chart) 15:47 13:48 Chief complaint: Amputation of right 3rd and 4th fingers from operations processor just TOOL DISTRIBUTOR hb hb
[2023-02-06 14:44] LABS: Absolute Lymphocytes (CBC) 4.4 K/uL (0.7-4.9); Hematocrit 44.5 % (39.6-49.0); Lymphocytes % 36.1 % (15.3-44.8); MCV 89.1 fL (80-100); MPV 7.3 fL (7.6-11.3); RBC Red Blood Cell Count 4.99 M/uL (4.33-5.43)
--- NOTE | 2023-02-06 14:50 | RAD REPORT ---
EXAM DESCRIPTION: RAD - Hand Right 3 View - 02/06/2023 2:17 pm CLINICAL HISTORY: DEFORMITY COMPARISON: No comparisons TECHNIQUE: Right hand, 3 views. FINDINGS: Mildly comminuted fracture sandeep of the second and third digit distal phalanges, with miss ing distal fragments. Overlying soft tissue swelling and bras, somewhat obscure fine bony details. There is no dislocation or periosteal reaction noted. No foreign body or other soft tissue abnormalit y. IMPRESSION: Amputation of the tips of the second and third digit distal phalanges with mildly commin uted fractures as above.
[2023-02-06 14:51] LABS: Protime INR 0.93
[2023-02-06 15:04] LABS: Albumin 4.5 g/dL (3.4-5.0); Bilirubin Total 0.4 mg/dL (0.2-1.0); Potassium 4.1 mEq/L (3.5-5.1); Protein, Total 8.6 g/dL (6.4-8.2)
[2023-02-06 15:11] VITALS: TEMP 98
[2023-02-06 15:13] VITALS: BP 142/90
[2023-02-06 15:15] VITALS: O2SAT 98
== END 2023-02-06 15:04 | disposition short-term general hospital (02) ==
LOC: ER 13:50
DX: S68.122A Partial traumatic metacarpophalangeal amputation of right middle finger, initial encounter (principal); S68.120A Partial traumatic metacarpophalangeal amputation of right index finger, initial encounter
CPT/HCPCS: 36415; 80053; 85025; 85610; 96365; 96372; 96375; 99285; J0690; J2001; J2405; J7030

== ENCOUNTER → 2023-10-17 | Emergency (ER) | payer SELFPAY ==
[~2023-10-17] MED LIST: HYDROCODONE/APAP 5/325 MG TAB ONE; LIDOCAINE 1% 20 ML MDV ONE; LIDOCAINE 2% W/EPI 1:200,000 MPF 20 ML VIAL IM ONE; LIDOCAINE HCL JELLY 2% 6 ML SYRINGE TOP ONE
--- OUTSIDE RECORDS SUMMARY | 2023-10-17 02:32 | XMS REPORT | Continuity of Care Document ---
Author Name Unknown Address [address] [facility] [address] [place] [id number] [facility] thconnect Address [address] [facility] [address] [place] [address] Care Team Providers Care Fund Development Manager Name Role Phone Pcp, Patient Does Not Have A Primary Care Physic ryan DEYA PRABHAKAR Attending Clinician Unavailable Doctor Unassigned, [place] Attending Clinician U DIDIER Johnston Attending Clinician Didier Martinez MD Attending Clinician [phone] Payers Payer Name Policy Type Policy Number Effective Date Expirati on Date Source Problems Condition Name Condition Details Condition Category Status Onset Date Resolution Date Last Treatment Date Treating Clinician Comments Source No known active problems No known active problems Disease [facility] Allergies, Adverse Reactions, Alerts Allergy Name Allergy Type Status Severity Reaction(s) Onset Date Inactive Date Treating Clinician Comments Source NO KNOWN ALLERGIE S Drug Class Active [facility] Social History Social Habit Start Date Stop Date Quantity Comments Source Exposure to SARS-CoV-2 (event) 2022-06-11 00:00:00 2022-06-21 14:05:[address] [facility] Sex Assigned At 1995 00:00:00 1995 00:00:00 [facility] Smoking Status Start Date Stop Date Source Tobacco smoking consumption unknown [facility] Medications Ordered Medication Name Filled Medication Name Start Date Stop Date Current Medication? Ordering Clinician Indication Dosage Frequency Signature (SIG) Comments Components Source No known medications 2021-08 10:34: 00 No No known medication s [facility] No known medications 2021-08 10:34: 00 No No known medication s [facility] No known medications 2021-08 10:34: 00 No No known medication s [facility] No known medications 2021-08 10:34: 00 No No known medication s [facility] Vital Signs Vital Name Observation Time Observation Value Comments Ernesto moreno Systolic blood pressure 2022-06-21 20:25:00 115 mm[Hg] [facility] Diastolic blood pressure 2022-06-21 20:25:00 71 mm[Hg] [facility] Heart rate 2022-06-21 20:25:00 111 /min [facility] Oxygen saturation in Arterial blood by Pulse oximetry 2022-06-21 20:25:00 98 /min [facility] Procedures Procedure Date / Time Performed Performing Clinicia n Source EXTERNAL PROVIDER RECORDS 2022-07-06 06:01:00 Doctor Unassigned, [place] [facility] REFERRAL- REQUEST/RESPONSE 2022-06-23 06:01:00 Doctor Unassigned, [place] [facility] Encounters Start Date/Time End Date/Time Encounter Type Admission Type Attending Clinicians Care Facility Care Department Encounter ID Source 2023-03-04 16:10:00 2023-03-04 17:59:00 Emergency ER DEYA PRABHAKAR [facility] [id number] [facility] 2022-07-06 00:00:00 2022-07-06 00:00:00 Orders Only Doctor Unassigned, [place] [id number] [facility] 2022-06-23 00:00:00 2022-06-23 00:00:00 Orders Only Doctor Unassigned, [place] [id number] [facility] 2022-06-21 14:15:00 2022-06-21 15:27:09 Outpatient R DIDIER [facility] [id number] [facility] 2022-06-21 14:15:00 2022-06-21 15:27:09 Office Visit Didier Camargo [facility] [id number] [facility]
--- NOTE | 2023-10-17 05:43 | EDPHYS ---
Physician Documentation [facility] Name: Pasha Garcia Age: 28 yrs Sex: Male : 1995 Arrival Date: 10/17/2023 Time: 02:29 Bed 14 Private MD: ED Physician Mynor Koehler HPI: 10/16 02:37 This 28 yrs old Male presents to ER via Unassigned with complaints of Laceration To Arm.ci 02:37 Patient is a 28-year-old male who presents with left forearm laceration that occurred a ci few minutes prior to arrival. Patient was attempting to go through his glass window because he locked his keys and went the window glass broke and cut his forearm. Tetanus up-to-date.. Historical: - Allergies: 02:53 No Known Allergies; cm10 - Home Meds: 02:53 None [Active]; cm10 - PMHx: 02:53 None; cm10 - PSHx: 02:53 None; cm10 - Immunization history:: Adult Immunizations up to date. - Social history:: Smoking status: unknown. - History obtained from: significant other. ROS: 05:30 Skin: Positive for abrasion(s), laceration(s), lesions, ci Exam: 05:30 Constitutional: This is a well developed, well nourished patient who is awake, alert, ci and in no acute distress. Head/Face: Normocephalic, atraumatic. Eyes: Pupils equal round and reactive to light, extra-ocular motions intact. Lids and lashes normal. Conjunctiva and sclera are non-icteric and not injected. Cornea within normal limits. Periorbital areas with no swelling, redness, or edema. ENT: Nares patent. No nasal discharge, no septal abnormalities noted. Tympanic membranes are normal and external auditory canals are clear. Oropharynx with no redness, swelling, or masses, exudates, or evidence of obstruction, uvula midline. Mucous membranes moist. Neck: Trachea midline, no thyromegaly or masses palpated, and no cervical lymphadenopathy. Supple, full range of motion without nuchal rigidity, or vertebral point tenderness. No Meningismus. Chest/axilla: Normal chest wall appearance and motion. Nontender with no deformity. No lesions are appreciated. Cardiovascular: Regular rate and rhythm with a normal S1 and S2. No gallops, murmurs, or rubs. Normal PMI, no JVD. No pulse deficits. Respiratory: Lungs have equal breath sounds bilaterally, clear to auscultation and percussion. No rales, rhonchi or wheezes noted. No increased work of breathing, no retractions or nasal flaring. Abdomen/GI: Soft, non-tender, with normal bowel sounds. No distension or tympany. No guarding or rebound. No evidence of tenderness throughout. Back: No spinal tenderness. No costovertebral tenderness. Full range of motion. MS/ Extremity: Pulses equal, no cyanosis. Neurovascular intact. Full, normal range of motion. Neuro: Awake and alert, GCS 15, oriented to person, place, time, and situation. Cranial nerves II-XII grossly intact. Motor strength 5/5 in all extremities. Sensory grossly intact. Cerebellar exam normal. Normal gait. Psych: Awake, alert, with orientation to person, place and time. Behavior, mood, and affect are within normal limits. 05:30 Skin: lesion(s), noted, and can be described as Large laceration and skin defect to the left forearm, Vital Signs: 02:25 BP 129 / 84; Pulse 110; Resp 20; Temp 98; Pulse Ox 100% on R/A; Weight 86.18 kg; Height cm10 5 ft. 8 in. ; Pain 10/10; 02:25 Body Mass Index 28.89 (86.18 kg, 172.72 cm) cm10 02:25 Pain Scale: Adult cm10 Laceration: 05:30 Wound Repair of 8cm ( 3.1in ) fascia involved laceration to left arm. Irregularly ci shaped.. Skin/tissue flap noted.. Minimal bleeding noted.. Distal neuro/vascular/tendon intact. Anesthesia: Wound infiltrated with 5 mls of LET, Lidocaine 2% with epi. Wound prep: Wound irrigation with saline by il, Copious irrigation. Skin closed with 12 3-0 Vicryl using 3-0 Vicryl to deep the laceration, 6 sutures. 4-0 Vicryl to subcutaneous laceration, 6 sutures. Dressed with Bacitracin, non-adherent dressing. Patient tolerated well. MDM: 02:32 Patient medically screened. ci 05:30 Differential diagnosis: superficial laceration, tendon injury, vascular injury. Data ci reviewed: vital signs, nurses notes. 10/16 02:37 Order name: XRAY Forearm LEFT ci Administered Medications: 02:30 Drug: Lidocaine Mucous Membrane Gel 2 % 1 application Mucous Membrane once Route: cm10 Mucous Membrane; 04:30 Drug: Lidocaine Infiltration (1 %) 5 mg Infiltration once Route: Infiltration; cm10 04:31 Drug: HYDROcodone-acetaminophen PO 5 mg-325 mg 1 tabs PO once Route: PO; cm10 06:08 Follow up: Response: No adverse reaction cm10 06:12 Follow up: Response: No adverse reaction cm10 06:08 Drug: Bacitracin Topical Ointment (500 unit/g) 1 application Topical once Route: cm10 Topical; Site: affected area; Disposition Summary: 10/17/23 05:43 Discharge Ordered Notes: Location: Home ci Condition: Stable ci Diagnosis - Laceration without foreign body of left forearm ci Followup: ci - With: Private Physician - When: 2 - 3 days - Reason: Wound Recheck, Recheck today's complaints, Re-evaluation by your physician Discharge Instructions: - Discharge Summary Sheet ci - Laceration Care, Adult, [id number] ci - Sutures, [place], or Adhesive Wound Closure, [id number] ci Forms: - Medication Reconciliation Form ci - Thank You Letter ci - Antibiotic Education ci - Prescription Opioid Use ci - Patient Portal Instructions ci - Leadership Thank You Letter ci Prescriptions: - Cephalexin 500 mg Oral Capsule - take 1 capsule ORAL route every 12 hours for 10 days; 20 capsule; Refills: 0, ci Product Selection Permitted Signatures: Dispatcher [employer] Shauna Davila RN RN cm10 Mynor Koehler ci
--- NOTE | 2023-10-17 05:43 | ER ---
Nurse's Notes [facility] Name: Pasha Garcia Age: 28 yrs Sex: Male : 1995 Arrival Date: 10/17/2023 Time: 02:29 Bed 14 Private MD: Diagnosis: Laceration without foreign body of left forearm Presentation: 10/16 02:25 Chief complaint: Patient states: Laceration to left forearm. Pt states that he cut his cm10 arm on some glass. Pt noted to have shirt tied to arm to apply pressure. Tourniquet placed to left arm by NIYAH Richter upon arrival to the ED. Coronavirus screen: Client denies travel out of the [place] in the last 14 days. At this time, the client does not indicate any symptoms associated with coronavirus-19. Ebola Screen: Patient denies travel to an Ebola-affected area in the 21 days before illness onset. No symptoms or risks identified at this time. Complicating Factors: There are no complicating factors for this patient. Initial Sepsis Screen: Does the patient meet any 2 criteria? No. Patient's initial sepsis screen is negative. Does the patient have a suspected source of infection? No. Patient's initial sepsis screen is negative. Risk Assessment: Do you want to hurt yourself or someone else? Patient reports no desire to harm self or others. Onset of symptoms was October 17, 2023. 02:25 Method Of Arrival: Ambulatory 10 02:25 Acuity: SAKINA 2 cm10 Triage Assessment: 02:25 General: Appears uncomfortable, Behavior is agitated. Pain: Complains of pain in dorsal cm10 aspect of left forearm Pain currently is 10 out of 10 on a pain scale. Neuro: No deficits noted. Level of Consciousness is awake, alert, Oriented to person, place, time, situation. Respiratory: No deficits noted. Airway is patent Respiratory effort is even, unlabored, Respiratory pattern is regular, symmetrical. Injury Description: Laceration sustained to dorsal aspect of left forearm is 7.6 to 20 cm long, bleeding profusely, is bleeding profusely a dressing was applied. Historical: - Allergies: 02:53 No Known Allergies; cm10 - Home Meds: 02:53 None [Active]; cm10 - PMHx: 02:53 None; cm10 - PSHx: 02:53 None; cm10 - Immunization history:: Adult Immunizations up to date. - Social history:: Smoking status: unknown. - History obtained from: significant other. Screenin:[address] [facility] ED Fall Risk Assessment (Adult) History of falling in the last 3 months, cm10 including since admission No falls in past 3 months (0 pts) Confusion or Disorientation No (0 pts) Intoxicated or Sedated No (0 pts) Impaired Gait No (0 pts) Mobility Assist Device Used No (0 pt) Altered Elimination No (0 pt) Score/Fall Risk Level 0 - 2 = Low Risk Oriented to surroundings, Maintained a safe environment, Hourly rounding (assess needs \T\ fall precautionary measures) done. Abuse screen: Denies threats or abuse. Denies injuries from another. Nutritional screening: No deficits noted. Tuberculosis screening: No symptoms or risk factors identified. Assessment: 02:50 Reassessment: Tourniquet removed at this time. Provider states that the bleeding is not cm10 arterial and it is not needed anymore. 02:56 Musculoskeletal: Range of motion: intact in all extremities. Injury Description: cm10 Laceration sustained to dorsal aspect of left forearm is 7.6 to 20 cm long. 03:00 Reassessment: Bleeding controlled at this time with pressure dressing. cm10 04:30 Reassessment: Provider at bedside suturing patient's laceration. cm10 Vital Signs: 02:25 BP 129 / 84; Pulse 110; Resp 20; Temp 98; Pulse Ox 100% on R/A; Weight 86.18 kg; Height cm10 5 ft. 8 in. ; Pain 10/10; 02:25 Body Mass Index 28.89 (86.18 kg, 172.72 cm) cm10 02:25 Pain Scale: Adult cm10 ED Course: 02:25 Arm band placed on Patient placed in an exam room, on a stretcher. Pressure dressing cm10 applied. 02:25 Wound care: was Tourniquet applied. cm10 02:30 Patient arrived in ED. jj6 02:31 Shauna Burnham, RN is Primary Nurse. cm10 02:32 Mynor Koehler is Attending Physician. ci 02:53 Triage completed. cm10 02:55 Wound care: was dressed with 4X4s, Kerlix. cm10 02:58 XRAY Forearm LEFT In Process Unspecified. EDMS 06:08 No provider procedures requiring assistance completed. Patient did not have IV access cm10 during this emergency room visit. 06:11 Patient has correct armband on for positive identification. Provided Education on: cm10 Follow-up instructions. . 06:11 Wound care:. cm10 Administered Medications: 02:30 Drug: Lidocaine Mucous Membrane Gel 2 % 1 application Mucous Membrane once Route: cm10 Mucous Membrane; 04:30 Drug: Lidocaine Infiltration (1 %) 5 mg Infiltration once Route: Infiltration; cm10 04:31 Drug: HYDROcodone-acetaminophen PO 5 mg-325 mg 1 tabs PO once Route: PO; cm10 06:08 Follow up: Response: No adverse reaction cm10 06:12 Follow up: Response: No adverse reaction cm10 06:08 Drug: Bacitracin Topical Ointment (500 unit/g) 1 application Topical once Route: cm10 Topical; Site: affected area; Medication: 06:11 VIS not applicable for this client. cm10 Outcome: 05:43 Discharge ordered by . marcos 06:11 Discharged to home ambulatory, with friend, cm10 06:11 Condition: good 06:11 Discharge instructions given to patient, Instructed on discharge instructions, follow up and referral plans. medication usage, Demonstrated understanding of instructions, follow-up care, medications, Prescriptions given X 1, 06:12 Patient left the ED. cm10 Signatures: Dispatcher [employer] EDMacey Melo6 Shauna Burnham RN RN cm10 ArianauneMynor ovalles
--- NOTE | 2023-10-17 12:49 | RAD REPORT ---
EXAM DESCRIPTION: RAD - Forearm Left - 10/17/2023 2:56 am CLINICAL HISTORY: Laceration;Pain COMPARISON: None TECHNIQUE: 2 views of the left forearm. FINDINGS: Normal mineralization. No acute fracture or dislocation. Joint spaces are maintained. Soft tissue defect and soft tissue swelling along the ventral aspect of the midforearm. No radiopaque foreign bodies. IMPRESSION: 1. No acute bony finding. 2. Soft tissue defect and soft tissue swelling along the ventral aspect of the midforearm. Electronically signed by: Alisha Tracey MD 10/17/2023 04:10 AM CDT Due to temporary technical issues with the PACS/Fluency reporting system, reports are being signed by the in house radiologist without review as a courtesy to ensure prompt reporting. The interpreting r adiologist is fully responsible for the content of the report.
== END ==
LOC: ER 02:29
PROC: 0HQEXZZ Repair Left Lower Arm Skin, External Approach (ICD-10-PCS; principal; 2023-10-17)
DX: S51.812A Laceration without foreign body of left forearm, initial encounter (principal)
CPT/HCPCS: 99284; J2001

== ENCOUNTER 2023-10-25 13:18 | Observation (INO) | payer OTHER ==
--- OUTSIDE RECORDS SUMMARY | 2023-10-25 13:21 | XMS REPORT | Continuity of Care Document ---
Author Name Unknown Address [address] [facility] [address] [place] [id number] [facility] thconnect Address [address] [facility]. [address] [place] [address] Care Team Providers Care Admin Asst Name Role Phone Pcp, Patient Does Not Have A Primary Care Physic ryan DEYA PRABHAKAR Attending Clinician Unavailable Doctor Unassigned, [place] Attending Clinician U navailDIDIER Vickers Attending Clinician Didier Martinez MD Attending Clinician Payers Payer Name Policy Type Policy Number Effective Date Expirati on Date Source Problems Condition Name Condition Details Condition Category Status Onset Date Resolution Date Last Treatment Date Treating Clinician Comments Source No known active problems No known active problems Disease [facility] Allergies, Adverse Reactions, Alerts Allergy Name Allergy Type Status Severity Reaction(s) Onset Date Inactive Date Treating Clinician Comments Source NO KNOWN ALLERGIE S Drug Class Active [facility] Social History Social Habit Start Date Stop Date Quantity Comments Source Exposure to SARS-CoV-2 (event) 2022-06-11 00:00:00 2022-06-21 14:05:[address] [facility] Sex Assigned At 1995 00:00[birth year]00 1995 00:00:00 [facility] Smoking Status Start Date Stop Date Source Tobacco smoking consumption unknown [facility] Medications Ordered Medication Name Filled Medication Name Start Date Stop Date Current Medication? Ordering Clinician Indication Dosage Frequency Signature (SIG) Comments Components Source No known medications 2021-08 10:34: 00 No No known medication s [facility] No known medications 2021-08 10:34: 00 No No known medication s [facility] No known medications 2021-08 10:34: 00 No No known medication s [facility] No known medications 2021-08 10:34: 00 No No known medication s [facility] Vital Signs Vital Name Observation Time Observation Value Comments S josh Systolic blood pressure 2022-06-21 20:25:00 115 mm[Hg] [facility] Diastolic blood pressure 2022-06-21 20:25:00 71 mm[Hg] [facility] Heart rate 2022-06-21 20:25:00 111 /min [facility] Oxygen saturation in Arterial blood by Pulse oximetry 2022-06-21 20:25:00 98 /min [facility] Procedures Procedure Date / Time Performed Performing Clinicia n Source EXTERNAL PROVIDER RECORDS 2022-07-06 06:01:00 Doctor Unassigned, [place] [facility] REFERRAL- REQUEST/RESPONSE 2022-06-23 06:01:00 Doctor Unassigned, [place] [facility] Encounters Start Date/Time End Date/Time Encounter Type Admission Type Attending [facility] Care Facility Care Department Encounter ID Source 2023-03-04 16:10:00 2023-03-04 17:59:00 Emergency ER DEYA PRABHAKAR [facility] [id number] [facility] 2022-07-06 00:00:00 2022-07-06 00:00:00 Orders Only Doctor Unassigned, [place] [id number] [facility] 2022-06-23 00:00:00 2022-06-23 00:00:00 Orders Only Doctor Unassigned, [place] [id number] [facility] 2022-06-21 14:15:00 2022-06-21 15:27:09 Outpatient DIDIER MARSHALL [facility] [id number] [facility] 2022-06-21 14:15:00 2022-06-21 15:27:09 Office Visit Didier Camargo [facility] [id number] [facility]
--- NOTE | 2023-10-25 13:59 | RAD REPORT ---
EXAM DESCRIPTION: US - Extremity Nonvascular Complete - 10/25/2023 1:48 pm CLINICAL HISTORY: r/o abscess Pain and swelling COMPARISON: No comparisons TECHNIQUE: Real-time sonographic evaluation of the area of interest was performed. FINDINGS: Multiloculated subcutaneous fluid is present. The adjacent fat appears echogenic 60 inflam mation. Skin thickening is also present. The finding likely indicates subcutaneous abscess/infected f luid.
[2023-10-25] MEDS ORDERED: NA CHLORIDE 0.9% 1,000 ML ONE (14:27)
[2023-10-25 15:02] LABS: Absolute Basophils 0.1 K/uL (0-0.5); Absolute Eosinophils 0.1 K/uL (0-0.5); Absolute Monocytes 1.1 K/uL (0.1-1.3); Absolute Neutrophil 6.1 K/uL (1.8-8.0); Basophils % 0.8 % (0-1.3); Eosinophils % 1.1 % (0-4.4); Hematocrit 42.5 % (39.6-49.0); Hemoglobin 14.5 g/dL (13.6-17.9); MCHC 34.1 g/dL (32.0-36.0); MPV 6.7 fL (7.6-11.3); Monocytes % 10.7 % (3.3-12.3); Neutrophils % 58.4 % (41.7-73.7); Nucleated Red Blood Cells % 0.1 % (0-0); Platelets 345 thou/uL (152-406); RBC Red Blood Cell Count 4.83 M/uL (4.33-5.43); Red Cell Distribution Width 13.4 % (12.1-15.2)
[2023-10-25 15:20] LABS: Anion Gap 7.8 mEq/L (5.0-15.0); Bilirubin Total 0.3 mg/dL (0.2-1.0); Potassium 3.8 mEq/L (3.5-5.1)
[2023-10-25] MEDS ORDERED: ONDANSETRON 4 MG/2 ML VIAL ONE (15:27)
[2023-10-25] MEDS ORDERED: MORPHINE 4 MG/ML SYR ONE (15:27)
[2023-10-25 15:28] LABS: PT Prothrombin Time 10.9 SECONDS (9.5-12.5); PTT, Activated Partial Thromb 27.7 SECONDS (24.3-36.9); Protime INR 0.99
[2023-10-25] MEDS ORDERED: CLINDAMYCIN 600MG/D5W 50 ML IV ONE (16:20)
--- NOTE | 2023-10-25 16:27 | ER ---
Nurse's Notes [facility] Name: Pasha Garcia Age: 28 yrs Sex: Male : 1995 Arrival Date: 10/25/2023 Time: 13:18 Bed 18 Private MD: Felipe Zhao Diagnosis: Cellulitis of left upper limb;Cutaneous abscess of left upper limb Presentation: 10/24 13:24 Chief complaint: Patient states: Didn't get antibiotics after sutures were placed 1 ll1 week ago. Site is red, swollen, hot to touch since last night. Coronavirus screen: Client denies travel out of the [place] in the last 14 days. At this time, the client does not indicate any symptoms associated with coronavirus-19. Ebola Screen: Patient denies travel to an Ebola-affected area in the 21 days before illness onset. Initial Sepsis Screen: Does the patient meet any 2 criteria? No. Patient's initial sepsis screen is negative. Does the patient have a suspected source of infection? No. Patient's initial sepsis screen is negative. Risk Assessment: Do you want to hurt yourself or someone else? Patient reports no desire to harm self or others. Onset of symptoms was October 24, 2023. 13:24 Method Of Arrival: Ambulatory ll1 13:24 Acuity: SAKINA 3 ll1 Triage Assessment: 13:27 General: Appears uncomfortable, Behavior is calm, cooperative, appropriate for age. ll1 Pain: Complains of pain in left arm Quality of pain is described as aching. Derm: Wound noted left arm Parent/caregiver reports the patient having red, swollen, hot to touch. Musculoskeletal: Circulation, motion, and sensation intact. Capillary refill < 3 seconds, Reports pain in left arm. 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 - Social history:: Smoking status: Patient denies any tobacco usage or history of. Screenin:30 [facility] ED Fall Risk Assessment (Adult) History of falling in the last 3 months, nj1 including since admission No falls in past 3 months (0 pts) Confusion or Disorientation No (0 pts) Intoxicated or Sedated No (0 pts) Impaired Gait No (0 pts) Mobility Assist Device Used No (0 pt) Altered Elimination No (0 pt) Score/Fall Risk Level 0 - 2 = Low Risk Oriented to surroundings, Maintained a safe environment, Hourly rounding (assess needs \T\ fall precautionary measures) done. 14:30 Abuse screen: Denies threats or abuse. Denies injuries from another. Nutritional nj1 screening: No deficits noted. Tuberculosis screening: No symptoms or risk factors identified. Assessment: 14:30 General: Appears in no apparent distress. uncomfortable, Behavior is calm, cooperative, nj1 appropriate for age. 14:30 Pain: Complains of pain in left arm Pain currently is 6 out of 10 on a pain scale. nj1 Neuro: Level of Consciousness is awake, alert, obeys commands, Oriented to person, place, time, situation. Cardiovascular: Patient's skin is warm and dry. Respiratory: Airway is patent Respiratory effort is even, unlabored. Derm: Wound noted dorsal aspect of left forearm Wound is Swelling as well as erythema noted to laceration repair. Reports pain. 15:30 Reassessment: Patient appears in no apparent distress at this time. No changes from nj1 previously documented assessment. Patient and/or family updated on plan of care and expected duration. Pain level reassessed. Patient is alert, oriented x 3, equal unlabored respirations, skin warm/dry/pink. 16:30 Reassessment: Patient appears in no apparent distress at this time. No changes from nj1 previously documented assessment. Patient and/or family updated on plan of care and expected duration. Pain level reassessed. Patient is alert, oriented x 3, equal unlabored respirations, skin warm/dry/pink. Vital Signs: 13:24 BP 155 / 95; Pulse 122; Resp 18; Temp 98.1(O); Pulse Ox 100% ; Weight 86.18 kg; Height ll1 5 ft. 7 in. ; Pain 6/10; 14:43 BP 128 / 79; Pulse 104; Resp 17; Pulse Ox 98% on R/A; nj1 15:32 BP 124 / 79; Pulse 99; Resp 16 S; Pulse Ox 100% on R/A; as6 16:30 BP 126 / 80; Pulse 103; Resp 18; Pulse Ox 98% ; nj1 13:24 Body Mass Index 29.76 (86.18 kg, 170.18 cm) ll1 13:24 Pain Scale: Adult ll1 ED Course: 13:22 Patient arrived in ED. rg4 13:22 Felipe Zhao MD is Private Physician. rg4 13:23 Lu Ocampo FNP-C is [facility]. kb 13:23 Andrew Fleming MD is Attending Physician. kb 13:27 Triage completed. ll1 13:27 Arm band placed on. ll1 13:50 Extremity Nonvascular Complete In Process Unspecified. EDMS 14:16 Radha Mcneil, RN is Primary Nurse. nj1 14:30 Patient has correct armband on for positive identification. Bed in low position. Call nj1 light in reach. Provided Education on: call light, fall precautions. 14:35 Inserted saline lock: 22 gauge in right forearm, using aseptic technique. Blood nj1 collected. 14:49 Initial lab(s) drawn, by ED staff, sent to lab. First set of blood cultures drawn. hb 15:00 Client placed on continuous cardiac and pulse oximetry monitoring. NIBP monitoring hb applied. cardiac monitor technician on. Pulse ox on. 15:32 Pillow given. as6 16:26 Chauncey Vazquez MD is Hospitalizing Provider. kb 16:53 Patient requests food. Patient requests liquids. Patient requests pain medication. mb9 17:10 Placed in gown. nj1 17:42 No provider procedures requiring assistance completed. Patient admitted, IV remains in nj1 place. Administered Medications: 14:42 Drug: NS 0.9% IV 1000 ml IV at 1000 ml once Route: IV; Rate: 1000 ml; Site: right nj1 forearm; 16:00 Follow up: Response: No adverse reaction; IV Status: Completed infusion; IV Intake: nj1 1000ml 15:29 Drug: morphine IVP or IV 4 mg IVP once over 4 mins Route: IVP; Infused Over: 4 mins; as6 Site: right forearm; 16:30 Follow up: Response: No adverse reaction; Pain is decreased nj1 15:30 Drug: Ondansetron IVP 4 mg IVP once; over 2 minutes Route: IVP; Site: right forearm; as6 16:30 Follow up: Response: No adverse reaction nj1 16:33 Drug: Clindamycin IVPB 600 mg IVPB once over 30 mins; (mix in 50 mL) Route: IVPB; nj1 Infused Over: 30 mins; Site: right forearm; 16:53 Follow up: Response: No adverse reaction; IV Status: Completed infusion; IV Intake: [id number] 16:53 Drug: Hydrocodone-Acetaminophen PO (7.5 mg-325 mg) 1 tabs PO once Route: PO; mb9 17:43 Follow up: Response: No adverse reaction; Pain is decreased nj1 Medication: 17:43 VIS not applicable for this client. nj1 Intake: 16:00 IV: 1000ml; Total: 1000ml. nj1 16:53 IV: 50ml; Total: 1050ml. nj1 Outcome: 16:26 Decision to Hospitalize by Provider. kb 17:43 Admitted to Med/surg accompanied by nurse, room 204, [facility] 17:43 Condition: stable 17:43 Instructed on the need for admit, 17:43 Patient left the ED. [facility] Signatures: Dispatcher [employer] EDMS Lu Ocampo, SENIOR TRAINING AND DEVELOPMENT REP-C SENIOR TRAINING AND DEVELOPMENT REP-Ckb Mary Plata, RN RN Debbie Quintanilla rg4 Emmy Hooks RN RN ll1 Valdemar Pacheco RN RN as6 Pura Diallo RN RN mb9 Radha Mcneil, RN RN nj1 Corrections: (The following items were deleted from the chart) 13:27 13:27 PSHx: None; 1 1 14:53 14:43 Pulse 104bpm; Resp 17bpm; Pulse Ox 98% RA; nj1 nj 17:28 17:27 Patient has correct armband on for positive identification. Bed in low position. nh1 Call light in reach. [facility] 17:28 17:27 Provided Education on: call light, fall precautions. [facility] nj
--- NOTE | 2023-10-25 16:27 | EDPHYS ---
Physician Documentation [facility] Name: Pasha Garcia Age: 28 yrs Sex: Male : 1995 Arrival Date: 10/25/2023 Time: 13:18 Bed 18 Private MD: Felipe Zhao ED Physician Andrew Fleming HPI: 10/24 13:31 This 28 yrs old Male presents to ER via Ambulatory with complaints of Suture Recheck. kb 13:31 Pt is a 28 year old male who had laceration repair with sutures on 10/17/23. Comes in kb today for drainage, redness and swelling to site. States the drainage started 2 days ago and the redness/swelling started last night. Denies fever. . 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 - Social history:: Smoking status: Patient denies any tobacco usage or history of. ROS: 13:31 Constitutional: As per HPI kb Exam: 13:31 Constitutional: This is a well developed, well nourished patient who is awake, alert, kb and in no acute distress. Head/Face: Normocephalic, atraumatic. ENT: Moist Mucous membranes Cardiovascular: Regular rate Respiratory: Respirations even and unlabored. No increased work of breathing. Talking in full sentences MS/ Extremity: Pulses equal, no cyanosis. Neurovascular intact. Full, normal range of motion. Neuro: Awake and alert, GCS 15, oriented to person, place, time, and situation. Moves all extremities. Normal gait. 13:31 Skin: Wound recheck: Suture laceration closure: no evidence of dehiscence, mild drainage, moderate erythema, moderate swelling, Vital Signs: 13:24 BP 155 / 95; Pulse 122; Resp 18; Temp 98.1(O); Pulse Ox 100% ; Weight 86.18 kg; Height ll1 5 ft. 7 in. ; Pain 6/10; 14:43 BP 128 / 79; Pulse 104; Resp 17; Pulse Ox 98% on R/A; nj1 15:32 BP 124 / 79; Pulse 99; Resp 16 S; Pulse Ox 100% on R/A; as6 16:30 BP 126 / 80; Pulse 103; Resp 18; Pulse Ox 98% ; nj1 13:24 Body Mass Index 29.76 (86.18 kg, 170.18 cm) ll1 13:24 Pain Scale: Adult ll1 MDM: 13:24 Patient medically screened. kb 13:31 Differential diagnosis: cellulitis, abscess. Data reviewed: vital signs, nurses notes. kb 16:22 Consideration of Admission/Observation Patient was admitted/placed on observation. kb Escalation of care including admission/observation considered. Management of patient was discussed with the following: Hospitalist: Hospitalist team, pt accepted for admission under Dr Vazquez. Top Frame Fitter: Dr Burnham accepts pt for consult. Counseling: I had a detailed discussion with the patient and/or guardian regarding the historical points, exam findings, and any diagnostic results supporting the discharge/admit diagnosis, lab results, radiology results, the need for further work-up and treatment in the hospital. 16:24 ED course: Removed 6 sutures. Pt did not tolerate well. Dr Burnham notified. kb 10/24 13:30 Order name: Blood Culture Adult (2) kb 10/24 13:30 Order name: CBC with Diff; Complete Time: 15:25 kb 10/24 13:30 Order name: CMP; Complete Time: 15:22 kb 10/24 13:30 Order name: Lactate w/ 2H reflex if indic.; Complete Time: 15:18 kb 10/24 13:30 Order name: Protime (+inr); Complete Time: 15:31 kb 10/24 13:30 Order name: Ptt, Activated; Complete Time: 15:31 kb 10/24 13:37 Order name: Extremity Nonvascular Complete; Complete Time: 14:01 EDMS 10/24 13:30 Order name: IV Saline Lock - Large Bore; Complete Time: 14:43 kb 10/24 13:30 Order name: Labs collected and sent; Complete Time: 14:43 kb 10/24 13:30 Order name: Vital Signs; Complete Time: 14:43 kb Administered Medications: 14:42 Drug: NS 0.9% IV 1000 ml IV at 1000 ml once Route: IV; Rate: 1000 ml; Site: right nj1 forearm; 16:00 Follow up: Response: No adverse reaction; IV Status: Completed infusion; IV Intake: nj1 1000ml 15:29 Drug: morphine IVP or IV 4 mg IVP once over 4 mins Route: IVP; Infused Over: 4 mins; as6 Site: right forearm; 16:30 Follow up: Response: No adverse reaction; Pain is decreased nj1 15:30 Drug: Ondansetron IVP 4 mg IVP once; over 2 minutes Route: IVP; Site: right forearm; as6 16:30 Follow up: Response: No adverse reaction nj1 16:33 Drug: Clindamycin IVPB 600 mg IVPB once over 30 mins; (mix in 50 mL) Route: IVPB; nj1 Infused Over: 30 mins; Site: right forearm; 16:53 Follow up: Response: No adverse reaction; IV Status: Completed infusion; IV Intake: [id number] 16:53 Drug: Hydrocodone-Acetaminophen PO (7.5 mg-325 mg) 1 tabs PO once Route: PO; mb9 17:43 Follow up: Response: No adverse reaction; Pain is decreased nj1 Disposition: 17:47 Co-signature as Attending Physician, Andrew Fleming MD I reviewed the patient's care rt provided by the Advanced Practice Provider and agree with the diagnosis and treatment plan. Disposition Summary: 10/25/23 16:26 Hospitalization Ordered Notes: Hospitalization Status: Inpatient Admission kb Provider: Chauncey Vazquez [facility] Condition: Stable kb Problem: new kb Symptoms: are unchanged kb Bed/Room Type: Standard Room Assignment: 204(10/25/23 17:01) bd Diagnosis - Cellulitis of left upper limb kb - Cutaneous abscess of left upper limb kb Forms: - Medication Reconciliation Form kb - SBAR form kb - Leadership Thank You Letter kb Signatures: Dispatcher [employer] Lu Santiago, MULTI TOWNSHIP ASSESSOR-C MULTI TOWNSHIP ASSESSOR-Jean Claudeb Eveline Castellanos Lee MULTI TOWNSHIP ASSESSOR-C MULTI TOWNSHIP ASSESSOR-Cla1 Emmy Hooks, RN RN ll1 Valdemar Pacheco RN RN as6 Pura Diallo RN RN mb9 Andrew Fleming MD MD rt Radha Mcneil RN RN nj1 Corrections: (The following items were deleted from the chart) 13:27 13:27 PSHx: None; ll1 ll1 13:37 13:31 Extrmty Nonvasular Limited+US.RAD.BRZ ordered. EDMS EDMS 16:48 16:26 kb bd 16:48 16:48 204 bd bd 17:01 16:48 bd bd
[2023-10-25] MEDS ORDERED: HYDROCODONE/APAP 7.5/325 MG TAB ONE (16:51)
--- NOTE | 2023-10-25 17:15 | P.HP ---
Certification for Inpatient Patient admitted to: Observation With expected LOS: <2 Midnights Patient will require the following post-hospital care: None Practitioner: I am a practitioner with admitting privileges, knowledge of patient current condition, hospital course, and medical plan of care. Services: Services provided to patient in accordance with Admission requirements found in Title 42 Section 412.3 of the Code of Federal Regulations Patient History Date of Service: 10/25/23 Reason for admission: Left forearm abscess History of Present Illness: 28-year-old otherwise healthy male presents emergency department chief complaint of concern for infection of his left forearm. On 10/17/2023 he was seen in the emergency department after trying to break into his home by punching the window and sustaining a laceration to his left forearm, an x-ray was obtained of his forearm at that time which did not show any radiopaque foreign bodies, his wound was closed with sutures at that time and he was prescribed Keflex. He lost the prescription for Keflex and had not taken any of the antibiotics. He noticed the last 2 3 days has been having significant erythema, swelling and increasing pain to his laceration site. Upon arrival to the emergency department he was tachycardic with heart rate in the 120s, his labs were significant for a normal white blood cell count, lactate 1.5. Nonvascular ultrasound was performed of the left forearm which was concerning for abscess. He was started on IV antibioticsclindamycin and general surgery was consulted who recommends formal incision and drainage to be performed tomorrow morning. Allergies No Known Allergies Allergy (Unverified 06/16/12 16:03) - Past Medical/Surgical History -: None -: None Psychosocial/ Personal History: Lives at home with family - Family History Family History: Reviewed- Non-Contributory - Social History Smoking Status: Never smoker Alcohol use: No CD- Drugs: No Caffeine use: Yes Place of Residence: Home Review of Systems 10-point ROS is otherwise unremarkable Musculoskeletal: Other (Left forearm pain) Physical Examination - Physical Exam General: Alert, In no apparent distress, Oriented x3 HEENT: Atraumatic, PERRLA, Mucous membr. moist/pink Neck: Supple, 2+ carotid pulse no bruit, No LAD Respiratory: Clear to auscultation bilaterally, Normal air movement Cardiovascular: Regular rate/rhythm, Normal S1 S2 Gastrointestinal: Normal bowel sounds, No tenderness Musculoskeletal: Swelling, Erythema, Tenderness, Warmth Integumentary: Tenderness/swelling, Erythema (Left forearm), Warmth Neurological: Normal speech, Normal strength at 5/5 x4 extr, Normal tone, Normal affect - Studies Laboratory Data (last 24 hrs) 10/25/23 10/25/23 10/25/23 14:35 14:35 14:35 WBC 10.40 Hgb 14.5 Hct 42.5 Plt Count 345 PT 10.9 INR 0.99 APTT 27.7 Sodium 137 Potassium 3.8 BUN 15 Creatinine 1.12 Glucose 88 Total Bilirubin 0.3 AST 23 ALT 35 Alkaline Phosphatase 91 Assessment and Plan - Plan Assessment: Left forearm cellulitis/abscess Plan: Left forearm cellulitis/abscess Continue IV antibioticsclindamycin N.p.o. after midnight in anticipation of formal incision and drainage General surgery consulted DVT PPX:SCD Code status:Full Discharge Plan: Home Plan to discharge in: 24 Hours - Advance Directives Does patient have a Living Will: No Does patient have a Durable POA for Healthcare: No - Code Status/Comfort Care Code Status Assessed: Yes (Full code) Critical Care: No Time Spent Managing Pts Care (In Minutes): 50
[2023-10-25 18:20] VITALS: BMI 29.7
[2023-10-25] MEDS: CLINDAMYCIN 900MG/D5W 900 MG/50 ML IVPB IV SCH (18:36)
[2023-10-25] MEDS: NA CHLORIDE 0.9% 1,000 ML IV SCH (18:36)
[2023-10-25] MEDS ORDERED: INFLUENZA VACCINE (for 6+ mo) 0.5 ML DOSE IMVAC ONE (19:00)
[2023-10-25] MEDS: HYDROCODONE/APAP 5/325 MG TAB PO PRN (20:35)
[2023-10-26 03:30] LABS: Absolute Basophils 0.1 K/uL (0-0.5); Absolute Eosinophils 0.3 K/uL (0-0.5); Absolute Lymphocytes (CBC) 3.8 K/uL (0.7-4.9); Absolute Monocytes 1.2 K/uL (0.1-1.3); Absolute Neutrophil 2.9 K/uL (1.8-8.0); Basophils % 0.7 % (0-1.3); Eosinophils % 3.4 % (0-4.4); Hematocrit 40.6 % (39.6-49.0); Hemoglobin 13.7 g/dL (13.6-17.9); Lymphocytes % 46.3 % (15.3-44.8); MCH 30.2 pg (27.0-35.0); MCHC 33.9 g/dL (32.0-36.0); MCV 89.1 fL (80-100); Monocytes % 14.2 % (3.3-12.3); Neutrophils % 35.4 % (41.7-73.7); Platelets 319 thou/uL (152-406); RBC Red Blood Cell Count 4.55 M/uL (4.33-5.43); Red Cell Distribution Width 13.6 % (12.1-15.2)
[2023-10-26 03:56] LABS: Anion Gap 8.2 mEq/L (5.0-15.0); Potassium 4.2 mEq/L (3.5-5.1)
--- NOTE | 2023-10-26 04:56 | CON ---
Date of Consultation: 10/25/2023 Reason For Service: Abscess in the left forearm. History Of Present Illness: This is a case of a 28-year-old patient who comes here, admitted to the hospital with sutures and erythema and swelling over the left forearm area. He says he came 5 days a go. He had repair of that region, but the area did not look good, so he decided to come back. Had a n ultrasound of that region, it showed abscess and a surgical consult was obtained for wound explorat ion and drainage of abscess. I am trying to get from the story exactly how that happened, but the de tails are not that great other than he has a centimeter cut with glass. Apparently, there was some s ignificant bleeding in that region in order for them to apply a tourniquet at that moment. This was repaired apparently in the ER and sent home. Allergies: NONE. Medications: None. Medical Problems: None. Surgeries: None. Social History: He does not smoke. He does not drink alcohol. Review of Systems: No shortness of breath. No chest pain. No fever. He has tenderness of the left forearm region with redness and fluctuance present. Review of systems, 10 points, otherwise unremarkable. Physical Examination: Vital Signs: Stable. General: The patient is awake, alert. HEENT: Pupils are equal and reactive. Anicteric. Neck: Supple. Chest: Clear. Heart: S1, S2. Abdomen: Soft and depressible. No guarding or rebound. No peritoneal signs. Extremities: Good capillary refill. Good peripheral pulses, radialis and also dorsalis pedis bilate rally. In the left forearm, the patient has about 10 cm laceration with stitches present. There is redness, which covers about 11 x 3 cm with fluctuance present consistent with an abscess. Full range of motion. Apparently, they tried to remove the stitches in the ER, but it was too tender and he wa s admitted to the hospital for IV antibiotics and for me to drain the abscess. Laboratory Data: WBC count of 10.4, platelets of 345. INR is 0.99. Potassium 3.8. Extremity ultra sound, per Dr. Medrano, shows multiloculated subcutaneous fluid present, most likely in the case, subcut aneous abscess. A forearm x-ray was done 10/17/2023, when the injury happened, shows soft tissue def ect. No acute bony findings. No evidence of any radiopaque foreign bodies. Assessment: This is a 28-year-old patient with abscess in the left arm status post trauma. The marina ent will go for exploration under anesthesia with drainage of abscess. The patient may require wound care. The benefits, alternatives, and risks fully explained, which include, but not limited to, inf ection, bleeding, damage to adjacent structures, anesthesia complication, nonhealing wound, VA, and e thaddeus . JOSE LUIS/MODL Voice ID: [id number] Report ID: [id number]
[2023-10-26] MEDS: MORPHINE 2 MG/ML SYR IV PRN (06:35)
[2023-10-26] MEDS: ONDANSETRON 4 MG/2 ML VIAL IV PRN (06:35)
[2023-10-26] MEDS ORDERED: ONDANSETRON 4 MG/2 ML VIAL ONE (12:00)
[2023-10-26] MEDS ORDERED: KETOROLAC 30 MG/ML INJ ONE (12:00)
[2023-10-26] MEDS ORDERED: dexAMETHasone 10 MG/ML VIAL ONE (12:00)
[2023-10-26] MEDS ORDERED: MIDAZOLAM HCL 2 MG/2 ML INJ ONE (12:00)
[2023-10-26] MEDS ORDERED: LIDOCAINE 2% MPF 5 ML VIAL ONE (12:00)
[2023-10-26] MEDS ORDERED: FENTANYL CITR 100 MCG/2 ML ONE (12:00)
[2023-10-26] MEDS ORDERED: propofoL 200 MG/20 ML VIAL IV ONE (12:00)
--- NOTE | 2023-10-26 12:46 | P.BOP ---
Preoperative diagnosis: Left forearm traumatic wound with abscess Postoperative diagnosis: same Primary procedure: Wound exploration, suture removal with drainage of abscess Secondary procedure: [id number] Estimated blood loss: <10cc Specimen: pus Findings: abscess Anesthesia: General Complications: None Drain(s): Other (wet to dry NS) Transferred to: Recovery Room Condition: Good
[2023-10-26 13:19] VITALS: O2SAT 100
[2023-10-26 13:54] VITALS: BP 115/48
[2023-10-26 14:30] VITALS: TEMP 97.3
--- NOTE | 2023-10-26 14:39 | P.DS ---
Admission Date: 10/25/23 Discharge Date: 10/26/23 Disposition: ROUTINE DISCHARGE Discharge Condition: GOOD Reason for Admission: Left forearm abscess Consultations: Dr. Burnham general surgery Procedures: Left forearm abscess incision and drainage 10/25 Brief History of Present Illness: 28-year-old otherwise healthy male presents emergency department chief complaint of concern for infection of his left forearm. On 10/17/2023 he was seen in the emergency department after trying to break into his home by punching the window and sustaining a laceration to his left forearm, an x-ray was obtained of his forearm at that time which did not show any radiopaque foreign bodies, his wound was closed with sutures at that time and he was prescribed Keflex. He lost the prescription for Keflex and had not taken any of the antibiotics. He noticed the last 2 3 days has been having significant erythema, swelling and increasing pain to his laceration site. Upon arrival to the emergency department he was tachycardic with heart rate in the 120s, his labs were significant for a normal white blood cell count, lactate 1.5. Nonvascular ultrasound was performed of the left forearm which was concerning for abscess. He was started on IV antibioticsclindamycin and general surgery was consulted who recommends formal incision and drainage to be performed tomorrow morning. Hospital Course: Patient was admitted to the hospital for a left forearm abscess after a laceration with repair. Incision and drainage was performed on 10/26/2023. Patient stable for discharge today and outpatient follow-up with Dr. Burnham in his office on Friday 10/27. Wound care/dressing instructions as above. Prescription for antibioticBactrim sent to [facility] in [place] Assessment: Left forearm cellulitis/abscess Vital Signs/Physical Exam: Temp Pulse Resp BP Pulse Ox 97.3 F 82 18 115/48 L 99 10/26/23 13:32 10/26/23 13:32 10/26/23 13:32 10/26/23 13:32 10/26/23 08:00 General: Alert, In no apparent distress, Oriented x3 HEENT: Atraumatic, PERRLA Neck: Supple, JVD not distended Respiratory: Clear to auscultation bilaterally, Normal air movement Cardiovascular: Regular rate/rhythm, Normal S1 S2 Gastrointestinal: Normal bowel sounds, No tenderness Musculoskeletal: No tenderness Integumentary: Other (Dressing to left forearm) Neurological: Normal speech, Normal tone, Normal affect Laboratory Data at Discharge: WBC 8.20 thou/uL (4.3-10.9) 10/26/23 02:55 Hgb 13.7 g/dL (13.6-17.9) 10/26/23 02:55 Hct 40.6 % (39.6-49.0) 10/26/23 02:55 Plt Count 319 thou/uL (152-406) 10/26/23 02:55 PT 10.9 SECONDS (9.5-12.5) 10/25/23 14:35 INR 0.99 10/25/23 14:35 APTT 27.7 SECONDS (24.3-36.9) 10/25/23 14:35 Sodium 137 mEq/L (136-145) 10/26/23 02:55 Potassium 4.2 mEq/L (3.5-5.1) 10/26/23 02:55 BUN 16 mg/dL (7-18) 10/26/23 02:55 Creatinine 0.96 mg/dL (0.70-1.30) 10/26/23 02:55 Glucose 107 mg/dL (74-106) H 10/26/23 02:55 Total Bilirubin 0.3 mg/dL (0.2-1.0) 10/25/23 14:35 AST 23 U/L (15-37) 10/25/23 14:35 ALT 35 U/L (16-61) 10/25/23 14:35 Alkaline Phosphatase 91 U/L (45-117) 10/25/23 14:35 Home Medications: Smz./Tmp. [Bactrim Ds 800 MG/160 MG] 1 tab PO BID 7 Days #14 tab 10/26/23 New Medications: Smz./Tmp. [Bactrim Ds 800 MG/160 MG] 1 tab PO BID 7 Days #14 tab Physician Discharge Instructions: Leave dressing intact until Dr Burnham office visit tuesday. Then after that, may clean with soap and water. Bactroban or triple antibiotic and dry gauze daily. Patient was admitted to the hospital for a left forearm abscess after a laceration with repair. Incision and drainage was performed on 10/26/2023. Patient stable for discharge today and outpatient follow-up with Dr. Burnham in his office on Friday 10/27. Wound care/dressing instructions as above. Prescription for antibioticBactrim sent to [facility] in [place] Diet: Regular Activity: Ad obdulia Followup: Felipe Zhao MD [Primary Care Provider] - If your Symptoms Worsen James Burnham MD [ACTIVE - CAN ADMIT] - 10/28/23 10:00 am Time spent managing pt's care (in minutes): 30
--- NOTE | 2023-10-27 02:24 | OP ---
Date of Procedure: 10/26/2023 Surgeon: James Burnham MD Preoperative Diagnosis: Left forearm traumatic wound with abscess. Postoperative Diagnosis: Left forearm traumatic wound with abscess. Procedure: Wound exploration with suture removal and debridement with drainage of the complex absces s about 8 x 3 x 2 cm. Estimated Blood Loss: Less than 10 cc. Specimen: Purulent discharge. Findings: Abscess with devitalized tissue. Anesthesia: General plus local. Indications: This is the case of a 28-year-old patient who apparently 5 days ago had a laceration wi cj aiken, deep, had come to the ER to have it repaired. Apparently, they gave him some antibiotics. As I first understand, he did not take them, came back 5 days later with a swelling over the left fo rearm area. He was told to remove the stitches, but it was too tender in the ER. The patient had to be admitted anyway for erythema and abscess and a surgical consult was obtained for wound exploratio n, debridement, and drainage of an abscess. The benefits, alternatives, and risks of that fully expl ained to the patient, which include, but not limited to infection, bleeding, damage to adjacent struc tures, anesthesia complication, nonhealing wound, OH, and even . He also understands this may n ot relieve symptoms. He might need more than one surgical intervention. He understands the importan ce of being compliant with treatment and the recommendations we were going to give him. He signed e consent. Description Of Procedure: The patient was brought to the operating room, placed in supine position. Anesthesia was without complication. The left forearm was prepped and draped in sterile fashion. A time-out was called. Local anesthesia was applied followed by first removal of the stitches present , underneath we found a purulent discharge and abscess that were just drained, irrigated. Some devit alized tissue present, was removed and debrided with the help of a sharp knife, but I did not see any glass. The area was irrigated profusely just in case he has any other debride in that, area and thi s area, we had have to leave to be left to close by secondary intentions, so we packed the area with wet-to-dry normal saline after injecting local anesthetic and covered the area. The patient tolerate d the procedure well. The patient was sent to recovery in stable condition. The patient will contin ue with wet-to-dry dressing for the next several months. He was advised if he goes home today to colt deng with my office in the next 48 hours, so we can explain to him once again dressing changes and ludwig e sure he is going to do it properly. FRANDY Voice ID: [id number] Report ID: [id number]
== END 2023-10-26 15:45 | disposition home or self-care (01) ==
LOC: ER 13:18 → ERHOLD 16:40 → 2ND 17:38
PROVIDERS: ADMIT Hospitalist; ATTEND Hospitalist
PROC: 0J9H0ZZ Drainage of Left Lower Arm Subcutaneous Tissue and Fascia, Open Approach (ICD-10-PCS; principal; 2023-10-26 13:00)
DX: L02.414 Cutaneous abscess of left upper limb (principal); L03.114 Cellulitis of left upper limb; R00.0 Tachycardia, unspecified; T81.41XA Infection following a procedure, superficial incisional surgical site, initial encounter
CPT/HCPCS: 87040 ×2; 87070; 85025 ×2; 80048; 36415; 87205; 85610; 83605; 85730; 87075; 80053; 76881; 10061; J2704; J2001; J2250; J3010; J1100; J2270; J2405 ×3; J7030 ×4; 96361; 96365; 96375; 99285; G0378

== ENCOUNTER 2024-11-21 10:22 | Emergency (ER) | payer OTHER ==
--- OUTSIDE RECORDS SUMMARY | 2024-11-21 10:25 | XMS REPORT | Continuity of Care Document ---
Author Name Unknown Address [address] [facility]. [address] [place] [address] [facility] Address [address] [facility] [place] [address] Care Team Providers Care Substation Electrician Name Role Phone Pcp, Patient Does Not Have A Primary Care Physic ryan DEYA PRABHAKAR Attending Clinician Unavailable Doctor Unassigned, [place] Attending Clinician U navDIDIER Muro Attending Clinician Didier Martinez MD Attending Clinician Payers Payer Name Policy Type Policy Number Effective Date Expirati on Date Source Problems Condition Name Condition Details Condition Category Status Onset Date Resolution Date Last Treatment Date Treating Clinician Comments Source No known active problems No known active problems Disease [facility] Allergies, Adverse Reactions, Alerts Allergy Name Allergy Type Status Severity Reaction(s) Onset Date Inactive Date Treating Clinician Comments Source NO KNOWN ALLERGIE S Drug Class Active [facility] Social History Social Habit Start Date Stop Date Quantity Comments Source Exposure to SARS-CoV-2 (event) 2022-06-11 00:00:00 2022-06-21 14:05:00 Not sure [facility] Sex Assigned At 1995 00:00:00 1995 00:00:00 [facility] Smoking Status Start Date Stop Date Source Tobacco smoking consumption unknown [facility] Medications Ordered Medication Name Filled Medication Name Start Date Stop Date Current Medication? Ordering Clinician Indication Dosage Frequency Signature (SIG) Comments Components Source No known medications 2021-08 10:34: 00 No No known medication s [facility] Vital Signs Vital Name Observation Time Observation Value Comments S josh Systolic blood pressure 2022-06-21 20:25:00 115 mm[Hg] [facility] Diastolic blood pressure 2022-06-21 20:25:00 71 mm[Hg] [facility] Heart rate 2022-06-21 20:25:00 111 /min [facility] Oxygen saturation in Arterial blood by Pulse oximetry 2022-06-21 20:25:00 98 /min [facility] Procedures Procedure Date / Time Performed Performing Clinicia n Source EXTERNAL PROVIDER RECORDS 2022-07-06 06:01:00 Doctor Unassigned, [place] [facility] REFERRAL- REQUEST/RESPONSE 2022-06-23 06:01:00 Doctor Unassigned, [place] [facility] Encounters Start Date/Time End Date/Time Encounter Type Admission Type Attending [facility] Care Facility Care Department Encounter ID Source 2023-03-04 16:10:00 2023-03-04 17:59:00 Emergency ER DEYA PRABHAKAR [facility] [id number] [facility] 2022-07-06 00:00:00 2022-07-06 00:00:00 Orders Only Doctor Unassigned, [place] [facility] [id number] [facility] 2022-06-23 00:00:00 2022-06-23 00:00:00 Orders Only Doctor Unassigned, [place] [id number] [facility] 2022-06-21 14:15:00 2022-06-21 15:27:09 Outpatient R DIDIER CAMARGO [facility] [id number] [facility] 2022-06-21 14:15:00 2022-06-21 15:27:09 Office Visit Didier Camargo [facility] [id number] [facility]
--- NOTE | 2024-11-21 10:49 | ER ---
Nurse's Notes [facility] Name: Pasha Garcia Age: 29 yrs Sex: Male : 1995 Arrival Date: 11/21/2024 Time: 10:22 Bed 12 Private MD: None, None Diagnosis: Viral rash, possible zoster Presentation: 11/21 10:28 Chief complaint: Patient states: there's a bump on the back of my head for 4 days and iw now there's more bumps and there's pus. Coronavirus screen: At this time, the client does not indicate any symptoms associated with coronavirus-19. Ebola Screen: No symptoms or risks identified at this time. Initial Sepsis Screen: Does the patient meet any 2 criteria? No. Patient's initial sepsis screen is negative. Does the patient have a suspected source of infection? No. Patient's initial sepsis screen is negative. Risk Assessment: Do you want to hurt yourself or someone else? Patient reports no desire to harm self or others. Onset of symptoms was November 17, 2024. 10:28 Method Of Arrival: Ambulatory iw 10:28 Acuity: SAKINA 4 iw Triage Assessment: 10:30 Bite description: bite. iw 10:31 General: Appears in no apparent distress. Behavior is calm, cooperative. Pain: iw Complains of pain in scalp. Neuro: Level of Consciousness is awake, alert, obeys commands, Oriented to person, place, time, situation. 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 - Infectious Disease History:: Denies. - Social history:: Smoking status: Patient reports the use of cigarette tobacco products, smokes one-half pack cigarettes per day. Vital Signs: 10:29 BP 129 / 74; Pulse 104; Resp 18; Pulse Ox 100% on R/A; Weight 95.25 kg; Height 5 ft. 6 iw in. ; 10:29 Body Mass Index 33.89 (95.25 kg, 167.64 cm) iw ED Course: 10: Patient arrived in ED. as 10:24 None, None is Private Physician. as 10:25 Lesa Chris MD is Attending Physician. sp3 10:29 Triage completed. iw 10:30 Arm band placed on. iw 10:33 Carole Cavazos, RN is Primary Nurse. iw Administered Medications: No medications were administered Outcome: 10:48 Discharge ordered by . sp3 10:55 Discharged to home ambulatory, iw 10:55 Condition: good 10:55 Discharge instructions given to patient, Instructed on discharge instructions, follow up and referral plans. medication usage, Demonstrated understanding of instructions, follow-up care, medications, Prescriptions given X 2, 10:55 Patient left the ED. iw Signatures: Breann Burnham as Carole Cavazos RN RN iw Lesa Chris MD MD sp3
--- NOTE | 2024-11-21 10:49 | EDPHYS ---
Physician Documentation [facility] Name: Pasha Garcia Age: 29 yrs Sex: Male : 1995 Arrival Date: 11/21/2024 Time: 10:22 Bed 12 Private MD: None, None ED Physician Lesa Chris HPI: 11/21 10:46 This 29 yrs old Male presents to ER via Ambulatory with complaints of blisters. sp3 10:46 29-year-old male with no past medical history presents with chief complaint of blisters sp3 on posterior occiput and anterior face predominantly on the left side of midline. Blisters are painful and "burning like electricity". Patient denies prior history of zoster. He denies fever, body aches, neck pain, lymphadenopathy, chest pain, shortness of breath, abdominal pain, nausea, vomiting, diarrhea, bleeding or any other signs or symptoms on ROS at this time.. 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 - Infectious Disease History:: Denies. - Social history:: Smoking status: Patient reports the use of cigarette tobacco products, smokes one-half pack cigarettes per day. ROS: 10:47 Constitutional: Negative for fever, chills, and weight loss, Eyes: Negative for injury, sp3 pain, redness, and discharge, ENT: Negative for injury, pain, and discharge, Neck: Negative for injury, pain, and swelling, Cardiovascular: Negative for chest pain, palpitations, and edema, Respiratory: Negative for shortness of breath, cough, wheezing, and pleuritic chest pain, Abdomen/GI: Negative for abdominal pain, nausea, vomiting, diarrhea, and constipation, Back: Negative for injury and pain, MS/Extremity: Negative for injury and deformity, Neuro: Negative for headache, weakness, numbness, tingling, and seizure, Psych: Negative for depression, anxiety, suicide ideation, homicidal ideation, and hallucinations, Allergy/Immunology: Negative for hives, rash, and allergies, Endocrine: Negative for neck swelling, polydipsia, polyuria, polyphagia, and marked weight changes, Hematologic/Lymphatic: Negative for swollen nodes, abnormal bleeding, and unusual bruising, 10:47 All other systems are negative, Exam: 10:47 Constitutional: This is a well developed, well nourished patient who is awake, alert, sp3 and in no acute distress. Head/Face: Normocephalic, atraumatic. Eyes: Pupils equal round and reactive to light, extra-ocular motions intact. Lids and lashes normal. Conjunctiva and sclera are non-icteric and not injected. Cornea within normal limits. Periorbital areas with no swelling, redness, or edema. ENT: Nares patent. No nasal discharge, no septal abnormalities noted. External auditory canals are clear. Oropharynx with no redness, swelling, or masses, exudates, or evidence of obstruction, uvula midline. Mucous membranes moist. Neck: Trachea midline, no thyromegaly or masses palpated, and no cervical lymphadenopathy. Supple, full range of motion without nuchal rigidity, or vertebral point tenderness. No Meningismus. Chest/axilla: Normal chest wall appearance and motion. Nontender with no deformity. No lesions are appreciated. Cardiovascular: Regular rate and rhythm with a normal S1 and S2. No gallops, murmurs, or rubs. Normal PMI, no JVD. No pulse deficits. Respiratory: Lungs have equal breath sounds bilaterally, clear to auscultation and percussion. No rales, rhonchi or wheezes noted. No increased work of breathing, no retractions or nasal flaring. Abdomen/GI: Soft, non-tender, with normal bowel sounds. No distension or tympany. No guarding or rebound. No evidence of tenderness throughout. Back: No spinal tenderness. No costovertebral tenderness. Full range of motion. MS/ Extremity: Pulses equal, no cyanosis. Neurovascular intact. Full, normal range of motion. Neuro: Awake and alert, GCS 15, oriented to person, place, time, and situation. Cranial nerves II-XII grossly intact. Motor strength 5/5 in all extremities. Sensory grossly intact. Cerebellar exam normal. Normal gait. Psych: Awake, alert, with orientation to person, place and time. Behavior, mood, and affect are within normal limits. 10:47 Skin: Multiple vesicles that are painful in nature noted on the posterior occiput and also on the chest left or right at midline of the lower lip and upper lip above the labial line.. Vital Signs: 10:29 BP 129 / 74; Pulse 104; Resp 18; Pulse Ox 100% on R/A; Weight 95.25 kg; Height 5 ft. 6 iw in. ; 10:29 Body Mass Index 33.89 (95.25 kg, 167.64 cm) iw MDM: 10:34 Medical Screening Exam initiated sp3 10:47 Data reviewed: vital signs, nurses notes. ED course: 29-year-old male who was initially sp3 concerned about insect bite now presents with blisters and rash. I am concerned that this may be early zoster or other herpetic illness. I am not highly suspicious of cellulitis or other bacterial origin. Will place on antiviral and steroid and have patient follow-up PCP as needed.. Administered Medications: No medications were administered Disposition Summary: 11/21/24 10:48 Discharge Ordered Notes: Location: Home sp3 Condition: Stable sp3 Diagnosis - Viral rash, possible zoster sp3 Discharge Instructions: - Discharge Summary Sheet sp3 - Shingles sp3 Forms: - Medication Reconciliation Form sp3 - Antibiotic Education sp3 - Prescription Opioid Use sp3 - Patient Portal Instructions sp3 - Leadership Thank You Letter sp3 Prescriptions: - Prednisone 20 mg Oral Tablet - take 3 tablets ORAL route once daily for 5 days; 15 tablet; Refills: 0, Product sp3 Selection Permitted - Valtrex 500 mg Oral Tablet - take 1 tablet ORAL route every 12 hours for 3 days; 6 tablet; Refills: 0, sp3 Product Selection Permitted Signatures: Carole Cavazos, RN RN iw Lesa Chris MD MD sp3
[2024-11-21 11:08] VITALS: BP 129/74; O2SAT 100
== END 2024-11-21 10:55 | disposition home or self-care (01) ==
LOC: ER 10:22
DX: B08.8 Other specified viral infections characterized by skin and mucous membrane lesions (principal)
CPT/HCPCS: 99283

== ENCOUNTER 2025-05-11 06:14 | Emergency (ER) | payer OTHER ==
--- OUTSIDE RECORDS SUMMARY | 2025-05-11 06:16 | XMS REPORT | Continuity of Care Document ---
Author Name Unknown Address [address] [facility]. [address] [place] [address] [facility] Address [address] [facility] [place] [address] Care Team Providers Care Sheet Writer Name Role Phone Pcp, Patient Does Not Have A Primary Care Physic ryan DEYA PRABHAKAR Attending Clinician Unavailable Doctor Unassigned, [place] Attending Clinician U navCHERYL Muro Attending Clinician Cheryl Martinez MD Attending Clinician Payers Payer Name Policy Type Policy Number Effective Date Expirati on Date Source Problems Condition Name Condition Details Condition Category Status Onset Date Resolution Date Last Treatment Date Treating Clinician Comments Source No known active problems No known active problems Disease [facility] Allergies, Adverse Reactions, Alerts Allergy Name Allergy Type Status Severity Reaction(s) Onset Date Inactive Date Treating Clinician Comments Source NO KNOWN ALLERGIE S Drug Class Active [facility] Social History Social Habit Start Date Stop Date Quantity Comments Source Exposure to SARS-CoV-2 (event) 2022-06-11 00:00:00 2022-06-21 14:05:00 Not sure [facility] Sex Assigned At 1995 00:00:00 1995 00:00:00 [facility] Smoking Status Start Date Stop Date Source Tobacco smoking consumption unknown [facility] Medications Ordered Medication Name Filled Medication Name Start Date Stop Date Current Medication? Ordering Clinician Indication Dosage Frequency Signature (SIG) Comments Components Source No known medications 2021-08 10:34: 00 No No known medication s [facility] Vital Signs Vital Name Observation Time Observation Value Comments S josh Systolic blood pressure 2022-06-21 20:25:00 115 mm[Hg] [facility] Diastolic blood pressure 2022-06-21 20:25:00 71 mm[Hg] [facility] Heart rate 2022-06-21 20:25:00 111 /min [facility] Oxygen saturation in Arterial blood by Pulse oximetry 2022-06-21 20:25:00 98 /min [facility] Procedures Procedure Date / Time Performed Performing Clinicia n Source EXTERNAL PROVIDER RECORDS 2022-07-06 06:01:00 Doctor Unassigned, [place] [facility] REFERRAL- REQUEST/RESPONSE 2022-06-23 06:01:00 Doctor Unassigned, [place] [facility] Encounters Start Date/Time End Date/Time Encounter Type Admission Type Attending [facility] Care Facility Care Department Encounter ID Source 2023-03-04 16:10:00 2023-03-04 17:59:00 Emergency ER DEYA PRABHAKAR [facility] [id number] [facility] 2022-07-06 00:00:00 2022-07-06 00:00:00 Orders Only Doctor Unassigned, [place] [facility] [id number] [facility] 2022-06-23 00:00:00 2022-06-23 00:00:00 Orders Only Doctor Unassigned, [place] [id number] [facility] 2022-06-21 14:15:00 2022-06-21 15:27:09 Outpatient R CHERYL CAMARGO [facility] [id number] [facility] 2022-06-21 14:15:00 2022-06-21 15:27:09 Office Visit Cheryl Camargo [facility] [id number]..840.114 [id number] [facility]
[2025-05-11] MEDS ORDERED: HYDROCODONE/APAP 5/325 MG TAB ONE (07:09)
[2025-05-11] MEDS ORDERED: LIDOCAINE 1% 20 ML MDV ONE (07:12)
--- NOTE | 2025-05-11 08:09 | ER ---
Nurse's Notes [facility] Name: Pasha Garcia Age: 30 yrs Sex: Male : 1995 Arrival Date: 05/11/2025 Time: 06:14 Bed 7 Private MD: Diagnosis: Laceration without foreign body of left middle finger without damage to nail Presentation: 05/11 06:27 Chief complaint: Patient states: left 3rd finger cut with razor on accident at approx br2 2200. Coronavirus screen: Client denies travel out of the [place] in the last 14 days. Ebola Screen: Patient denies exposure to infectious person. Initial Sepsis Screen: Does the patient meet any 2 criteria? No. Patient's initial sepsis screen is negative. Does the patient have a suspected source of infection? No. Patient's initial sepsis screen is negative. Risk Assessment: Do you want to hurt yourself or someone else?. Onset of symptoms was May 10, 2025 at 22:00. 06:27 Method Of Arrival: Ambulatory br2 06:27 Acuity: SAKINA 4 br2 Triage Assessment: 06:28 General: Appears in no apparent distress. uncomfortable, Behavior is calm, cooperative. br2 Pain: Complains of pain in dorsal aspect of middle phalanx of left middle finger and palmar aspect of middle phalanx of left middle finger Pain currently is 9 out of 10 on a pain scale. 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 - Infectious Disease History:: Denies. - Social history:: Smoking status: Patient reports the use of cigarette tobacco products, smokes one-half pack cigarettes per day, Patient/guardian denies using alcohol, street drugs. - Family history:: not pertinent. - Hospitalizations: : No recent hospitalization is reported. Screenin:31 [facility] ED Fall Risk Assessment (Adult) History of falling in the last 3 months, iw including since admission No falls in past 3 months (0 pts) Confusion or Disorientation No (0 pts) Intoxicated or Sedated No (0 pts) Impaired Gait No (0 pts) Mobility Assist Device Used No (0 pt) Altered Elimination No (0 pt) Score/Fall Risk Level 0 - 2 = Low Risk Oriented to surroundings, Maintained a safe environment. Abuse screen: Denies threats or abuse. Nutritional screening: No deficits noted. Tuberculosis screening: No symptoms or risk factors identified. Assessment: 07:23 General: Appears in no apparent distress. uncomfortable, well groomed, well developed, af3 Behavior is calm, cooperative, appropriate for age. Pain: Complains of pain in palmar aspect of distal phalanx of left index finger. Neuro: Level of Consciousness is awake, alert, obeys commands, Oriented to person, place, time, situation, Appropriate for age. Cardiovascular: Patient's skin is warm and dry. Respiratory: Airway is patent Respiratory effort is even, unlabored, Respiratory pattern is regular, symmetrical. Vital Signs: 06:27 BP 139 / 74; Pulse 97; Resp 18; Temp 97.1; Pulse Ox 100% on R/A; Weight 90.72 kg; br2 Height 5 ft. 6 in. ; Pain 9/10; 07:00 BP 125 / 71; Pulse 94; Resp 18; Pulse Ox 98% on R/A; af3 07:15 BP 145 / 128; Pulse 95; Resp 18; Pulse Ox 98% on R/A; af3 07:30 BP 136 / 84; Pulse 91; Resp 18; Pulse Ox 98% on R/A; af3 06:27 Body Mass Index 32.28 (90.72 kg, 167.64 cm) br2 06:27 Pain Scale: Adult br2 ED Course: 06:16 Patient arrived in ED. mr 06:23 Navin Cain DO is Attending Physician. ms3 06:28 Triage completed. br2 06:28 Arm band placed on right wrist. br2 07:00 Report received from NIYAH Zepeda. af3 07:02 Attending Physician role handed off by Navin Cain DO rn 07:02 Wally Vazquez MD is Attending Physician. rn 07:20 Ashley Dixon RN is Primary Nurse. af3 08:31 Assist provider with laceration repair on palmar aspect of middle phalanx of left iw middle finger and dorsal aspect of middle phalanx of left middle finger that was between 2.6 to 7.5 cm using sutures. Set up tray. Performed by Wally Vazquez MD Dressed with 4X4s, Patient tolerated well. 08:31 Patient did not have IV access during this emergency room visit. iw Administered Medications: 07:11 Drug: HYDROcodone-acetaminophen PO 5 mg-325 mg 1 tabs PO once Route: PO; af3 07:30 Drug: Lidocaine Infiltration (1 %) 1 vials 5 ml Infiltration once; to bedside Volume: 5 ph ml; Route: Infiltration; Outcome: 08:08 Discharge ordered by . niyah 08:30 Discharged to home ambulatory, with family, iw 08:30 Condition: good 08:30 Discharge instructions given to patient, family, Instructed on discharge instructions, follow up and referral plans. medication usage, Demonstrated understanding of instructions, follow-up care, medications, wound care, Prescriptions given X 1, 08:32 Patient left the ED. iw Signatures: Pura Abdalla, Reg Reg mr Carole Cavazos, RN RN iw Wally Vazquez MD MD rn Hall, Patricia, RN RN Navin Cain DO DO ms3 Mariama Chamberlain RN RN br2 Ashley Dixon RN RN af3
--- NOTE | 2025-05-11 08:09 | EDPHYS ---
Physician Documentation [facility] Name: Pasha Garcia Age: 30 yrs Sex: Male : 1995 Arrival Date: 05/11/2025 Time: 06:14 Bed 7 Private MD: ED Physician Wally Vazquez HPI: 05/11 07:10 This 30 yrs old Male presents to ER via Ambulatory with complaints of Finger laceration.rn 07:10 The patient has a laceration occurred at home. The patient has experienced a previous rn episode. Patient reports accidentally cut the left middle finger with a kick boxer. Small laceration and happened at 10 PM last night. Bleeding controlled with tissue paper and electrical tape to the distal finger. No numbness or tingling. No other injury.. 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 - Infectious Disease History:: Denies. - Social history:: Smoking status: Patient reports the use of cigarette tobacco products, smokes one-half pack cigarettes per day, Patient/guardian denies using alcohol, street drugs. - Family history:: not pertinent. - Hospitalizations: : No recent hospitalization is reported. ROS: 07:10 Constitutional: Negative for fever, chills, and weight loss, MS/Extremity: Positive for rn laceration to the left middle finger Neuro: Negative for numbness or weakness Exam: 07:10 Constitutional: This is a well developed, well nourished patient who is awake, alert, rn and in no acute distress. MS/ Extremity: Pulses equal, no cyanosis, normal cap refill. No active bleeding. Patient not tolerating removal of tissue paper so could not fully visualize laceration. Sensation intact. After digital block wound explored, moderate depth, is 2 cm in length, does not involve nail. Vital Signs: 06:27 BP 139 / 74; Pulse 97; Resp 18; Temp 97.1; Pulse Ox 100% on R/A; Weight 90.72 kg; br2 Height 5 ft. 6 in. ; Pain 9/10; 07:00 BP 125 / 71; Pulse 94; Resp 18; Pulse Ox 98% on R/A; af3 07:15 BP 145 / 128; Pulse 95; Resp 18; Pulse Ox 98% on R/A; af3 07:30 BP 136 / 84; Pulse 91; Resp 18; Pulse Ox 98% on R/A; af3 06:27 Body Mass Index 32.28 (90.72 kg, 167.64 cm) br2 06:27 Pain Scale: Adult br2 Procedures: 07:27 Nerve block: (digital) of palmar aspect of proximal phalanx of left middle finger external relations manager: Lidocaine 1% without epinephrine Amount: 3 mls were injected, Effect: the patient's symptoms are improved, Set up for procedure. Performed by Wally Vazquez MD Patient tolerated well. Laceration: 08:06 Wound Repair of 2cm ( 0.8in ) subcutaneous laceration to Distal phalanx of the left rn middle finger. Distal neuro/vascular/tendon intact. Anesthesia: Digital block administered with 3 mls of 1% lidocaine. Wound prep: Extensive cleansing by nurse, Wound irrigation by nurse, Wound explored extensively. Skin closed with 6 4-0 Prolene using interrupted sutures and sterile technique. Dressed with 4x4's. Patient tolerated well. MDM: 07:03 Medical Screening Exam initiated rn 07:10 ED course: Patient cannot tolerate removal of tissue and electrical tape, will perform rn digital block and evaluate wound.. 08:06 Differential diagnosis: superficial laceration. Data reviewed: vital signs, nurses rn notes, and as a result, I will discharge patient. Counseling: I had a detailed discussion with the patient and/or guardian regarding the historical points, exam findings, and any diagnostic results supporting the discharge/admit diagnosis, the need for outpatient follow up, to return to the emergency department if symptoms worsen or persist or if there are any questions or concerns that arise at home. Response to treatment: the patient's symptoms have markedly improved after treatment, and as a result, I will discharge patient. Special discussion: I discussed with the patient/guardian in detail that at this point there is no indication for admission to the hospital. It is understood, however, that if the symptoms persist or worsen the patient needs to return immediately for re-evaluation. 05/11 07:10 Order name: Wound Care; Complete Time: 07:38 rn 05/11 07:17 Order name: Suture Tray at Bedside; Complete Time: 07:21 rn Administered Medications: 07:11 Drug: HYDROcodone-acetaminophen PO 5 mg-325 mg 1 tabs PO once Route: PO; af3 07:30 Drug: Lidocaine Infiltration (1 %) 1 vials 5 ml Infiltration once; to bedside Volume: 5 ph ml; Route: Infiltration; Disposition Summary: 05/11/25 08:08 Discharge Ordered Notes: Location: Home rn Problem: new rn Symptoms: have improved rn Condition: Stable rn Diagnosis - Laceration without foreign body of left middle finger without damage to nail rn Followup: rn - With: Emergency Department - When: 14 days - Reason: Staple/Suture removal Discharge Instructions: - Discharge Summary Sheet rn - Laceration Care, Adult rn Forms: - Medication Reconciliation Form rn - Antibiotic automatic glove turner and former - Prescription Opioid Use rn - Patient Portal Instructions rn - Leadership Thank You Letter rn Prescriptions: - Augmentin 875-125 mg Oral Tablet - take 1 tablet ORAL route every 12 hours for 10 days; 20 tablet; Refills: 0, rn Product Selection Permitted Signatures: Wally Vazquez MD MD rn Hall, Patricia, RN RN ph Sims, Marcus, DO ms3 Mariama Chamberlain RN RN br2 Ashley Dixon RN RN af3 Corrections: (The following items were deleted from the chart) 08:06 07:10 Constitutional: This is a well developed, well nourished patient who is awake, rn alert, and in no acute distress. MS/ Extremity: Pulses equal, no cyanosis, normal cap refill. No active bleeding. Patient not tolerating removal of tissue paper so could not fully visualize laceration. Sensation intact. rn
[2025-05-11 08:37] VITALS: TEMP 97.1
[2025-05-11 08:39] VITALS: O2SAT 98
[2025-05-11 08:42] VITALS: BP 136/84
== END 2025-05-11 08:32 | disposition home or self-care (01) ==
LOC: ER 06:14
PROC: 0HQGXZZ Repair Left Hand Skin, External Approach (ICD-10-PCS; principal; 2025-05-11)
DX: S61.213A Laceration without foreign body of left middle finger without damage to nail, initial encounter (principal)
CPT/HCPCS: 64450; 99284; 12041; J2003